=== PATIENT | male | born 1945 | race Caucasian/White ===

== ENCOUNTER 2018-07-16 11:58 | Observation (INO) ==
[2018-07-16 12:45] LABS: Basophils % 0.3 %; Eosinophils # 0.1 K/mcL (0.0-0.6); Eosinophils % 1.7 %; Hematocrit 41.1 % (37.5-50.1); Hemoglobin 12.8 g/dL (12.9-16.9); Immature Granulocytes % 0.3 % (0-4); Lymphocytes # 0.8 K/mcL (0.6-4.6); Lymphocytes % 12.7 %; Mean Corpuscular HGB Conc 31.1 g/dL (31.6-35.5); Mean Corpuscular Hemoglobin 24.3 pg (28.0-33.3); Mean Platelet Volume 10.2 fL (9.4-12.4); Monocytes # 0.7 K/mcL (0.0-1.3); Monocytes % 11.1 %; Neutrophils # 4.7 K/mcL (1.6-8.9); Platelet Count 128 K/mcL (140-400); Red Blood Count 5.27 M/mcL (4.19-5.50); Segmented Neutrophils % 73.9 %
--- NOTE | 2018-07-16 12:56 | Emergency Department Note ---
Addendum entered and electronically signed by Omar Frey DO 07/16/18 16:25: Spoke with on-call hospitalist maryann Foreman to admit for diaphoresis, pneumonia, acute kidney injury, drug ingestion, and suicidal ideation. No further orders at this time Original Note: Disposition Clinical Impression: Thrombocytopenia, Suicidal ideation, Diaphoresis, Drug ingestion, Acute kidney injury Pneumonia Qualifiers: Pneumonia type: due to unspecified organism Laterality: unspecified laterality Lung location: unspecified part of lung Qualified Code(s): J18.9 - Pneumonia, unspecified organism Disposition: Admitted As Inpatient Condition: Good Referrals: NONE,PCP [Primary Care Provider] - Forms: ED Satisfaction Letter Time of Disposition: 15:04 General Adult HPI - General Chief complaint: ED Overdose Stated complaint: SI Time Seen by Provider: 07/16/18 12:06 Source: patient, EMS Mode of arrival: EMS Limitations: no limitations Nursing Notes Reviewed: Yes Vital Signs Reviewed: Yes - History of Present Illness HPI Narrative: 73-year-old male presents to the emergency department via EMS with reports of suicide ideation. Patient resides at home and has a home health aide. He reports chronic pain that extends from his ankles up to his neck. He currently does not have any pain. He does report some nausea but denies any vomiting. He presents here diaphoretic but in no acute distress. He admits to taking over 15 tablets of his oxycodone 10 mg pain prescription. This was filled 3 days ago for 120 tablets, there are only 67 tablets remaining. He denies intentionally taken it to harm himself however he voiced that he wanted to visit his brother who is . He denies any other drug ingestion. Denies any pain at this time such as chest pain shortness of breath or abdominal pain. Denies history of cardiac ischemic disease. Pain Scale: 0 - Related Data Home Medications Medication Instructions Recorded Confirmed Acetaminophen [Tylenol] 500 mg PO Q6HR PRN 05/06/16 05/06/16 Aspirin 81 mg PO DAILY 05/06/16 05/06/16 Clopidogrel [Plavix] 75 mg PO DAILY 05/06/16 05/06/16 Ergocalciferol (VITAMIN D2) 50,000 unit PO QWEEK 05/06/16 05/06/16 [Vitamin D2] Ezetimibe [Zetia] 10 mg PO DAILY 05/06/16 05/06/16 Lisinopril [Zestril] 20 mg PO DAILY 05/06/16 05/06/16 Metoprolol [Lopressor] 25 mg PO BID 05/06/16 05/06/16 Omeprazole [PriLOSEC] 20 mg PO BID 05/06/16 05/06/16 Oxycodone HCl/Acetaminophen 1 tab PO QID PRN 05/06/16 05/06/16 [Percocet 10-325 mg Tablet] Pregabalin [Lyrica] 150 mg PO BID 05/06/16 05/06/16 Sodium Bicarbonate 650 mg PO TID 05/06/16 05/06/16 Sucralfate [Carafate] 1 gm PO BID 05/06/16 05/06/16 Tamsulosin [Flomax] 0.4 mg PO DAILY 05/06/16 05/06/16 Temazepam [Restoril] 15 mg PO HS 05/06/16 05/06/16 Tizanidine HCl 4 mg PO Q8H PRN 05/06/16 05/06/16 Tolterodine Tartrate [Detrol] 2 mg PO BID 05/06/16 05/06/16 Trospium Chloride 20 mg PO HS 05/06/16 05/06/16 Varenicline [Chantix] 0.5 mg PO DAILY 05/06/16 05/06/16 Vit C/Vit E/Lutein/Min/[place]-3 1 cap PO DAILY 05/06/16 05/06/16 [Ocuvite Softgel] diazePAM [Valium] 10 mg PO BID 05/06/16 05/06/16 Allergies Allergy/AdvReac Type Severity Reaction Status Date / Time No Known Allergies Allergy Verified 05/06/16 08:15 All systems ED: reviewed and negative except as stated. Review of Systems: As Per HPI Constitutional: Denies: fever, chills, weakness Cardiovascular: Denies: chest pain Respiratory: Denies: dyspnea Gastrointestinal: Reports: nausea. Denies: abdominal pain, vomiting, diarrhea, hematemesis, hematochezia Genitourinary: Denies: dysuria Musculoskeletal: Denies: back pain, arthralgia Neurological: Denies: headache, weakness, numbness Psychiatric: Reports: suicidal thoughts. Denies: homicidal thoughts, auditory hallucinations, visual hallucinations Past Medical History - Past Medical History Attestation: Yes The following information was validated with the patient. Source: patient Medical history: Reports: GERD, renal disease Surgical history: Reports: angioplasty/stent, cholecystectomy, orthopedic, other Psychiatric history: Reports: no psych history - Social History Smoking Status: Former smoker Alcohol use: Reports: none Drug use: Reports: none, prescription drug abuse Physical Exam - General Limitations: no limitations General appearance: alert, in no apparent distress, other (He is visibly diaphoretic in the face) - Head Head exam: atraumatic, normocephalic, normal inspection - Eye Eye exam: Present: normal appearance, PERRL, EOMI - ENT ENT exam: normal exam, normal oropharynx, mucous membranes moist - Neck Neck exam: Present: normal inspection, full ROM, trachea midline - Chest Chest inspection: Present: normal inspection, symmetric chest wall rise - Respiratory Respiratory exam: Present: normal lung sounds bilaterally. Absent: respiratory distress, wheezes - Expanded Cardiovascular Exam Peripheral pulses: 2+: radial (R), radial (L) - Abdominal Exam Abdominal exam: Present: soft, Non-Tender, normal bowel sounds. Absent: tenderness, distention, guarding, rebound, rigidity - Extremities Exam Extremities exam: Present: normal inspection, full ROM, normal capillary refill. Absent: tenderness, pedal edema - Neurological Exam Neurological exam: Present: alert, oriented X3, CN II-XII intact - Expanded Neurological Exam Patient oriented to: Present: person, place, time Speech: Present: fluid speech Cranial nerves: EOM function (II, III, IV, ): Normal, facial sensation (V): Normal, facial palsy (VII): Normal, gag reflex (IX): Normal, spinal accessory function (XI): Normal, tongue deviation (XII): Normal Motor strength - LUE: 5/5 Motor strength - RUE: 5/5 Motor strength - LLE: 5/5 Motor strength - RLE: 5/5 Upper motor neuron exam: cyndi neglect: Absent bilaterally, pronator drift: Absent bilaterally Sensory exam upper extremity: light touch: Normal Sensory exam lower extremity: light touch: Normal Coma Scale Eye Opening: Spontaneous Coma Scale Motor Response: Obeys Commands Coma Scale Verbal Response: Oriented Coma Scale Total: 15 - Psychiatric Psychiatric exam: Present: normal affect, anxious - Skin Skin exam: Present: warm, intact, diaphoresis, pallor Course Course Narrative: Patient presents with possible suicidal ideation with intentional drug ingestion. He presents diaphoretic but no acute distress. Medications include oxycodone 10 mg without Tylenol component. There is only 67 tablets remaining out of 120 after prescription filled 3 days ago. No history of cardiac ischemic disease. Vital signs are stable here. Neurologic exam without focal deficits. Psychiatric medical clearance evaluation including EKG and chest x-ray. I do not suspect withdrawal at this time as he admits to taking medication yesterday. He denies alcohol use. - Reevaluation(s) Reevaluation #1: Review of his labs shows acute kidney injury 1.79. Urinalysis is not consistent with infection. Urine drug screen shows opiates and benzodiazepine. Alcohol Tylenol and salicylate level unremarkable. Chest x-ray with concerns for possible pneumonia. Will treat for community acquired pneumonia. Concern for possible suicide attempts with intentional drug ingestion a prescription medication. Patient would benefit admission for further evaluation and psychiatric evaluation after medical clearance. Time: 15:05 Reevaluation #2: Troponin lesson 0.03. I am unsure of the etiology of his diaphoresis. Patient would benefit medical admission for his community acquired pneumonia and be evaluated by psychiatry for the concern of intentional drug ingestion overdose. [place] slip signed and on the chart. Time: 16:21 Vital Signs Temperature 98.1 F 07/16/18 12:03 Pulse Rate 102 07/16/18 12:03 Respiratory Rate 12 07/16/18 12:03 Blood Pressure 102/64 07/16/18 12:03 O2 Sat by Pulse Oximetry 94 07/16/18 12:03 Temperature 98.1 F 07/16/18 12:03 Pulse Rate 77 07/16/18 15:47 Respiratory Rate 13 07/16/18 15:47 Blood Pressure 105/56 07/16/18 15:47 O2 Sat by Pulse Oximetry 99 07/16/18 15:47 Oxygen Delivery Oxygen Delivery Nasal Cannula Medical Decision Making - MDM Narrative Medical decision making narrative: Patient was discussed with my attending physician who agrees with ED management and final disposition. They independently evaluated the patient. Please refer to their attestation to this encounter for additional information. This note was generated by [employer] voice recognition software and as a result grammatical or spelling errors may occur using this program. - Medical Records Medical records reviewed: Yes I reviewed the patient's medical records. - Lab Data Lab results reviewed: Yes I reviewed the patient's lab results. Result diagrams: 07/16/18 12:32 07/16/18 12:32 Lab Results 07/16/18 07/16/18 07/16/18 Range/Units 12:32 12:32 13:53 WBC 6.3 (4.3-11.1) K/mcL RBC 5.27 (4.19-5.50) M/mcL Hgb 12.8 L (12.9-16.9) g/dL Hct 41.1 (37.5-50.1) % MCV 78.0 L (83.0-100.0) fL MCH 24.3 L (28.0-33.3) pg MCHC 31.1 L (31.6-35.5) g/dL RDW 16.0 H (11.5-14.5) % Plt Count 128 L (140-400) K/mcL MPV 10.2 (9.4-12.4) fL Immature Gran % 0.3 (0-4) % Seg Neutrophils % 73.9 % Lymphocytes % 12.7 % Monocytes % 11.1 % Eosinophils % 1.7 % Basophils % 0.3 % Neutrophils # 4.7 (1.6-8.9) K/mcL Lymphocytes # 0.8 (0.6-4.6) K/mcL Monocytes # 0.7 (0.0-1.3) K/mcL Eosinophils # 0.1 (0.0-0.6) K/mcL Basophils # 0.0 (0.0-0.2) K/mcL Sodium 139 (136-145) mEq/L Potassium 4.2 (3.5-5.1) mEq/L Chloride 106 (98-107) mEq/L Carbon Dioxide 24 (23-29) mEq/L BUN 22 (8-23) mg/dL Creatinine 1.79 H (0.70-1.30) mg/dL Est GFR ( Amer) 46 L (> 60) Est GFR (Non-Af Amer) 38 L (> 60) BUN/Creatinine Ratio 12 (6-26) Glucose 126 H (70-105) mg/dL Calculated Osmolality 293 (280-300) Calcium 9.3 (8.6-10.3) mg/dL Troponin I < 0.03 (< 0.04) ng/mL Urine Color Yellow (Yellow) Urine Clarity Clear (Clear) Urine pH 6.0 (5.0-8.0) pH Units Ur Specific [place] 1.016 (1.010-1.025) Urine Protein Trace (Neg-Trace) mg/dL Urine Glucose (UA) Normal (Normal) mg/dL Urine Ketones Negative (Negative) mg/dL Urine Blood Negative (Negative) Urine Nitrite Negative (Negative) Urine Bilirubin Negative (Negative) Urine Urobilinogen Normal (Normal) mg/dL Ur Leukocyte Esterase Negative (Negative) Urine Microscopic RBC 3-5 H (0-3) per hpf Urine Microscopic WBC 3-5 H (0-3) per hpf Ur Squamous Epith Cells Few (None-Few) per lpf Amorphous Sediment Few (Few) Hyaline Casts Few (None-Few) per lpf Urine Mucus Few (Few) Salicylates < 2.5 L (15.0-30.0) mg/dL Urine Opiates Screen (Ovykqp=123) ng/mL Acetaminophen < 10 L (10-20) mcg/mL Ur Barbiturates Screen (Gbtbfk=746) ng/mL Ur Phencyclidine Scrn (Cutoff=25) ng/mL Ur Amphetamines Screen (Ngffgj=4030) ng/mL U Benzodiazepines Scrn (Dyupvn=121) ng/mL Urine Cocaine Screen (Cutoff= 300) ng/mL U Marijuana (THC) Screen (Cutoff = 50) ng/mL Ur Drug Screen Interp Ethyl Alcohol < 10 (Less than 10) mg/dL 07/16/18 Range/Units 13:53 WBC (4.3-11.1) K/mcL RBC (4.19-5.50) M/mcL Hgb (12.9-16.9) g/dL Hct (37.5-50.1) % MCV (83.0-100.0) fL MCH (28.0-33.3) pg MCHC (31.6-35.5) g/dL RDW (11.5-14.5) % Plt Count (140-400) K/mcL MPV (9.4-12.4) fL Immature Gran % (0-4) % Seg Neutrophils % % Lymphocytes % % Monocytes % % Eosinophils % % Basophils % % Neutrophils # (1.6-8.9) K/mcL Lymphocytes # (0.6-4.6) K/mcL Monocytes # (0.0-1.3) K/mcL Eosinophils # (0.0-0.6) K/mcL Basophils # (0.0-0.2) K/mcL Sodium (136-145) mEq/L Potassium (3.5-5.1) mEq/L Chloride (98-107) mEq/L Carbon Dioxide (23-29) mEq/L BUN (8-23) mg/dL Creatinine (0.70-1.30) mg/dL Est GFR ( Amer) (> 60) Est GFR (Non-Af Amer) (> 60) BUN/Creatinine Ratio (6-26) Glucose (70-105) mg/dL Calculated Osmolality (280-300) Calcium (8.6-10.3) mg/dL Troponin I (< 0.04) ng/mL Urine Color (Yellow) Urine Clarity (Clear) Urine pH (5.0-8.0) pH Units Ur Specific [place] (1.010-1.025) Urine Protein (Neg-Trace) mg/dL Urine Glucose (UA) (Normal) mg/dL Urine Ketones (Negative) mg/dL Urine Blood (Negative) Urine Nitrite (Negative) Urine Bilirubin (Negative) Urine Urobilinogen (Normal) mg/dL Ur Leukocyte Esterase (Negative) Urine Microscopic RBC (0-3) per hpf Urine Microscopic WBC (0-3) per hpf Ur Squamous Epith Cells (None-Few) per lpf Amorphous Sediment (Few) Hyaline Casts (None-Few) per lpf Urine Mucus (Few) Salicylates (15.0-30.0) mg/dL Urine Opiates Screen Positive H (Ayvvri=103) ng/mL Acetaminophen (10-20) mcg/mL Ur Barbiturates Screen Negative (Yrshap=222) ng/mL Ur Phencyclidine Scrn Negative (Cutoff=25) ng/mL Ur Amphetamines Screen Negative (Kflsro=5402) ng/mL U Benzodiazepines Scrn Positive H (Fsbhud=189) ng/mL Urine Cocaine Screen Negative (Cutoff= 300) ng/mL U Marijuana (THC) Screen Negative (Cutoff = 50) ng/mL Ur Drug Screen Interp See Below Ethyl Alcohol (Less than 10) mg/dL - Radiology Data Radiology results reviewed: Yes I reviewed the patient's radiology results. Chest X-Ray 07/16/18 13:38 IMPRESSION: New left perihilar airspace opacity could represent scarring if there has been interim radiotherapy. Alternatively, this could represent pneumonia or asymmetric edema. D/ / Johnny Squires MD / Johnny Squires MD Interpreting Provider: Johnny Squires MD - EKG Data EKG #1 EKG attestation: Yes I reviewed and interpreted this EKG. EKG results narrative: EKG performed 1218 which shows sinus tachycardia 100 beats per minute, normal axis, early R wave progression, no ST elevation or depression, Q waves seen in leap 3, intervals within normal limits. Compared to prior EKG performed 05/01/2016 shows similar consistent findings. No acute ischemic changes.
[2018-07-16 13:04] LABS: Acetaminophen < 10 mcg/mL (10-20); BUN/Creatinine Ratio 12 (6-26); Blood Urea Nitrogen 22 mg/dL (8-23); Calcium 9.3 mg/dL (8.6-10.3); Carbon Dioxide 24 mEq/L (23-29); Chloride 106 mEq/L (98-107); Ethanol < 10 mg/dL (Less than 10); Glucose 126 mg/dL (70-105); Osmolality,Calculated 293 (280-300); Potassium 4.2 mEq/L (3.5-5.1); Salicylate < 2.5 mg/dL (15.0-30.0); Sodium 139 mEq/L (136-145); eGFR For Non-African Americans 38 (> 60)
[2018-07-16 14:07] LABS: Bilirubin,Urine Negative (Negative); Blood,Urine Negative (Negative); Clarity,Urine Clear (Clear); Color,Urine Yellow (Yellow); Glucose,Urine (UA) Normal (Normal); Ketones,Urine Negative (Negative); Leukocyte Esterase,Urine Negative (Negative); Nitrite,Urine Negative (Negative); Protein,Urine Trace mg/dL (Neg-Trace); Specific Gravity,Urine 1.016 (1.010-1.025); Urobilinogen,Urine Normal (Normal)
[2018-07-16 14:22] LABS: Hyaline Casts,Urine Few per lpf (None-Few); Mucus,Urine Few (Few)
[2018-07-16 14:23] LABS: Amorphous Sediment,Urine Few (Few); Squamous Epithelial Cell,Urine Few per lpf (None-Few)
[2018-07-16 14:25] LABS: Amphetamine Screen,Urine Negative ng/mL (Cutoff=1000); Barbiturate Screen,Urine Negative ng/mL (Cutoff=200); Benzodiazepines Screen,Urine Positive ng/mL (Cutoff=200); Cannabinoid Screen,Urine Negative ng/mL (Cutoff = 50); Cocaine Screen,Urine Negative ng/mL (Cutoff= 300); Opiate Screen,Urine Positive ng/mL (Cutoff=300); Phencyclidine Screen,Urine Negative ng/mL (Cutoff=25)
[2018-07-16] MEDS ORDERED: 0.9 % Sodium Chloride 1,000 ML IVC ONE (14:48)
[2018-07-16] MEDS ORDERED: cefTRIAXone 1,000 MG in Water for inj. (sterile) 20 ML 10 ML IVP ONE (14:48)
[2018-07-16] MEDS ORDERED: Azithromycin 500 MG in D5% in Water 250 ML IVPB ONE (14:48)
[2018-07-16] MEDS ORDERED: Pantoprazole 40 MG VIAL IVP ONE (14:51)
[2018-07-16 15:56] LABS: Troponin I < 0.03 ng/mL (< 0.04)
--- NOTE | 2018-07-16 15:58 | Emergency Department Note ---
Disposition Clinical Impression: Thrombocytopenia, Suicidal ideation, Diaphoresis, Drug ingestion, Acute kidney injury Pneumonia Qualifiers: Pneumonia type: due to unspecified organism Laterality: unspecified laterality Lung location: unspecified part of lung Qualified Code(s): J18.9 - Pneumonia, unspecified organism Disposition: Admitted As Inpatient Condition: Good Referrals: NONE,PCP [Primary Care Provider] - Forms: ED Satisfaction Letter General Adult HPI - General Chief complaint: ED Overdose Stated complaint: SI Time Seen by Provider: 07/16/18 12:06 Source: patient, EMS Mode of arrival: EMS Limitations: no limitations - History of Present Illness Pain Scale: 0 - Related Data Home Medications Medication Instructions Recorded Confirmed Acetaminophen [Tylenol] 500 mg PO Q6HR PRN 05/06/16 05/06/16 Aspirin 81 mg PO DAILY 05/06/16 05/06/16 Clopidogrel [Plavix] 75 mg PO DAILY 05/06/16 05/06/16 Ergocalciferol (VITAMIN D2) 50,000 unit PO QWEEK 05/06/16 05/06/16 [Vitamin D2] Ezetimibe [Zetia] 10 mg PO DAILY 05/06/16 05/06/16 Lisinopril [Zestril] 20 mg PO DAILY 05/06/16 05/06/16 Metoprolol [Lopressor] 25 mg PO BID 05/06/16 05/06/16 Omeprazole [PriLOSEC] 20 mg PO BID 05/06/16 05/06/16 Oxycodone HCl/Acetaminophen 1 tab PO QID PRN 05/06/16 05/06/16 [Percocet 10-325 mg Tablet] Pregabalin [Lyrica] 150 mg PO BID 05/06/16 05/06/16 Sodium Bicarbonate 650 mg PO TID 05/06/16 05/06/16 Sucralfate [Carafate] 1 gm PO BID 05/06/16 05/06/16 Tamsulosin [Flomax] 0.4 mg PO DAILY 05/06/16 05/06/16 Temazepam [Restoril] 15 mg PO HS 05/06/16 05/06/16 Tizanidine HCl 4 mg PO Q8H PRN 05/06/16 05/06/16 Tolterodine Tartrate [Detrol] 2 mg PO BID 05/06/16 05/06/16 Trospium Chloride 20 mg PO HS 05/06/16 05/06/16 Varenicline [Chantix] 0.5 mg PO DAILY 05/06/16 05/06/16 Vit C/Vit E/Lutein/Min/[place]-3 1 cap PO DAILY 05/06/16 05/06/16 [Ocuvite Softgel] diazePAM [Valium] 10 mg PO BID 05/06/16 05/06/16 Allergies Allergy/AdvReac Type Severity Reaction Status Date / Time No Known Allergies Allergy Verified 05/06/16 08:15 Constitutional: Denies: fever, chills, weakness Cardiovascular: Denies: chest pain Respiratory: Denies: dyspnea Gastrointestinal: Reports: nausea. Denies: abdominal pain, vomiting, diarrhea, hematemesis, hematochezia Genitourinary: Denies: dysuria Musculoskeletal: Denies: back pain, arthralgia Neurological: Denies: headache, weakness, numbness Psychiatric: Reports: suicidal thoughts. Denies: homicidal thoughts, auditory hallucinations, visual hallucinations Past Medical History - Past Medical History Medical history: Reports: GERD, renal disease Surgical history: Reports: angioplasty/stent, cholecystectomy, orthopedic, other Psychiatric history: Reports: no psych history - Social History Smoking Status: Former smoker Alcohol use: Reports: none Drug use: Reports: none, prescription drug abuse Physical Exam - General Limitations: no limitations General appearance: alert, in no apparent distress, other (He is visibly diaphoretic in the face) Course Vital Signs Temperature 98.1 F 07/16/18 12:03 Pulse Rate 102 07/16/18 12:03 Respiratory Rate 12 07/16/18 12:03 Blood Pressure 102/64 07/16/18 12:03 O2 Sat by Pulse Oximetry 94 07/16/18 12:03 Temperature 98.1 F 07/16/18 12:03 Pulse Rate 77 07/16/18 15:47 Respiratory Rate 13 07/16/18 15:47 Blood Pressure 105/56 07/16/18 15:47 O2 Sat by Pulse Oximetry 99 07/16/18 15:47 Oxygen Delivery Oxygen Delivery Nasal Cannula Medical Decision Making - Lab Data Result diagrams: 07/16/18 12:32 07/16/18 12:32 Lab Results 07/16/18 07/16/18 07/16/18 Range/Units 12:32 12:32 13:53 WBC 6.3 (4.3-11.1) K/mcL RBC 5.27 (4.19-5.50) M/mcL Hgb 12.8 L (12.9-16.9) g/dL Hct 41.1 (37.5-50.1) % MCV 78.0 L (83.0-100.0) fL MCH 24.3 L (28.0-33.3) pg MCHC 31.1 L (31.6-35.5) g/dL RDW 16.0 H (11.5-14.5) % Plt Count 128 L (140-400) K/mcL MPV 10.2 (9.4-12.4) fL Immature Gran % 0.3 (0-4) % Seg Neutrophils % 73.9 % Lymphocytes % 12.7 % Monocytes % 11.1 % Eosinophils % 1.7 % Basophils % 0.3 % Neutrophils # 4.7 (1.6-8.9) K/mcL Lymphocytes # 0.8 (0.6-4.6) K/mcL Monocytes # 0.7 (0.0-1.3) K/mcL Eosinophils # 0.1 (0.0-0.6) K/mcL Basophils # 0.0 (0.0-0.2) K/mcL Sodium 139 (136-145) mEq/L Potassium 4.2 (3.5-5.1) mEq/L Chloride 106 (98-107) mEq/L Carbon Dioxide 24 (23-29) mEq/L BUN 22 (8-23) mg/dL Creatinine 1.79 H (0.70-1.30) mg/dL Est GFR ( Amer) 46 L (> 60) Est GFR (Non-Af Amer) 38 L (> 60) BUN/Creatinine Ratio 12 (6-26) Glucose 126 H (70-105) mg/dL Calculated Osmolality 293 (280-300) Calcium 9.3 (8.6-10.3) mg/dL Urine Color Yellow (Yellow) Urine Clarity Clear (Clear) Urine pH 6.0 (5.0-8.0) pH Units Ur Specific [place] 1.016 (1.010-1.025) Urine Protein Trace (Neg-Trace) mg/dL Urine Glucose (UA) Normal (Normal) mg/dL Urine Ketones Negative (Negative) mg/dL Urine Blood Negative (Negative) Urine Nitrite Negative (Negative) Urine Bilirubin Negative (Negative) Urine Urobilinogen Normal (Normal) mg/dL Ur Leukocyte Esterase Negative (Negative) Urine Microscopic RBC 3-5 H (0-3) per hpf Urine Microscopic WBC 3-5 H (0-3) per hpf Ur Squamous Epith Cells Few (None-Few) per lpf Amorphous Sediment Few (Few) Hyaline Casts Few (None-Few) per lpf Urine Mucus Few (Few) Salicylates < 2.5 L (15.0-30.0) mg/dL Urine Opiates Screen (Dubluo=228) ng/mL Acetaminophen < 10 L (10-20) mcg/mL Ur Barbiturates Screen (Pdxtet=864) ng/mL Ur Phencyclidine Scrn (Cutoff=25) ng/mL Ur Amphetamines Screen (Timkss=5406) ng/mL U Benzodiazepines Scrn (Sducye=441) ng/mL Urine Cocaine Screen (Cutoff= 300) ng/mL U Marijuana (THC) Screen (Cutoff = 50) ng/mL Ur Drug Screen Interp Ethyl Alcohol < 10 (Less than 10) mg/dL 07/16/18 Range/Units 13:53 WBC (4.3-11.1) K/mcL RBC (4.19-5.50) M/mcL Hgb (12.9-16.9) g/dL Hct (37.5-50.1) % MCV (83.0-100.0) fL MCH (28.0-33.3) pg MCHC (31.6-35.5) g/dL RDW (11.5-14.5) % Plt Count (140-400) K/mcL MPV (9.4-12.4) fL Immature Gran % (0-4) % Seg Neutrophils % % Lymphocytes % % Monocytes % % Eosinophils % % Basophils % % Neutrophils # (1.6-8.9) K/mcL Lymphocytes # (0.6-4.6) K/mcL Monocytes # (0.0-1.3) K/mcL Eosinophils # (0.0-0.6) K/mcL Basophils # (0.0-0.2) K/mcL Sodium (136-145) mEq/L Potassium (3.5-5.1) mEq/L Chloride (98-107) mEq/L Carbon Dioxide (23-29) mEq/L BUN (8-23) mg/dL Creatinine (0.70-1.30) mg/dL Est GFR ( Amer) (> 60) Est GFR (Non-Af Amer) (> 60) BUN/Creatinine Ratio (6-26) Glucose (70-105) mg/dL Calculated Osmolality (280-300) Calcium (8.6-10.3) mg/dL Urine Color (Yellow) Urine Clarity (Clear) Urine pH (5.0-8.0) pH Units Ur Specific [place] (1.010-1.025) Urine Protein (Neg-Trace) mg/dL Urine Glucose (UA) (Normal) mg/dL Urine Ketones (Negative) mg/dL Urine Blood (Negative) Urine Nitrite (Negative) Urine Bilirubin (Negative) Urine Urobilinogen (Normal) mg/dL Ur Leukocyte Esterase (Negative) Urine Microscopic RBC (0-3) per hpf Urine Microscopic WBC (0-3) per hpf Ur Squamous Epith Cells (None-Few) per lpf Amorphous Sediment (Few) Hyaline Casts (None-Few) per lpf Urine Mucus (Few) Salicylates (15.0-30.0) mg/dL Urine Opiates Screen Positive H (Qyjldm=541) ng/mL Acetaminophen (10-20) mcg/mL Ur Barbiturates Screen Negative (Klheef=277) ng/mL Ur Phencyclidine Scrn Negative (Cutoff=25) ng/mL Ur Amphetamines Screen Negative (Xzyqhd=8060) ng/mL U Benzodiazepines Scrn Positive H (Vbiskz=393) ng/mL Urine Cocaine Screen Negative (Cutoff= 300) ng/mL U Marijuana (THC) Screen Negative (Cutoff = 50) ng/mL Ur Drug Screen Interp See Below Ethyl Alcohol (Less than 10) mg/dL Attestation Statement - Attestation Attestation: I examined this patient and my medical decision-making was reviewed with the Resident Physician. I agree with the documented findings, disposition and treatment plan as described except to the extent set forth below. 73 year old male presents to the Ed with complaints of intentiaonl overdose and vomitting coffee ground emesis x 1. Topher states taht he is unsure how many he took but like 20-30s. Topher has a new MARIAH and possibly pneumonia. WE will admit to medicne for medical clerance and then petey consult.
[2018-07-16] MEDS ORDERED: Naloxone 0.4 MG/ML INJ IVP PRN (16:13)
--- NOTE | 2018-07-16 16:55 | Internal Med History&Physical ---
Date of Encounter: 07/16/18 Time of Encounter: 16:30 Internal Medicine - H&P: HPI Chief complaint: Oxycodone overdose, SI Admitted From: Home History of present illness: Mr. Wood is a 73 year old male with past medical history of GERD, chronic pain on oxycodone, ex-smoker, who presented to the ED with intentional overdose on oxycodone. Patient picked up 120 tablets of oxycodone 3 days ago and reports that he took 10-15 tabs of oxycodone 10mg in an attempt to "meet his twin brother", who had already . Although he reports ingestion of 15 tabs, he apparently only had 67 tabs left in the pill bottle. Other than mild nausea, he denies any chest pain, SOB, cough, sputum production, palpitation, abdominal pain, or dysuria. Denies any history of cardiac disease or CVA, although his preliminary medication list includes aspirin and Plavix. In the ED, he was afebrile and hemodynamically stable. Labwork was largely unremarkable except for creatinine of 1.79 (previously 0.9 in 04/2016). Urinalysis negative for nitrite or leukocyte esterase. Urine tox screen was positive for opiates and benzodiazepine. EtOH < 10. EKG showed normal sinus rhythm with ventricular rate of 100, normal QTc, and no ST-T changes concerning for ischemia. CXR was reported as new left perihilar opacity ?scarring vs. PNA vs. asymmetric edema. He was given a dose of rocephin/azithromycin and admitted for further management. Past Med Surg Social Fam HX - Past Medical History Attestation: Yes The following information was validated with the patient. Medical history: GERD Additional medical history: chronic pain Psychiatric history: no psych history - Past Surgical History Surgical History: cholecystectomy, orthopedic, other Additional surgical history: multiple back and foot - Social History Smoking Status: Former smoker Alcohol use: none Drug use: none, prescription drug abuse - Additional Family History Additional family history: Reviewed and noncontributory Internal Medicine - H&P: Meds Acetaminophen [Tylenol] 500 mg PO Q6HR PRN 05/06/16 [History] Aspirin 81 mg PO DAILY 05/06/16 [History] Clopidogrel [Plavix] 75 mg PO DAILY 05/06/16 [History] Ergocalciferol (VITAMIN D2) [Vitamin D2] 50,000 unit PO QWEEK 05/06/16 [History] Ezetimibe [Zetia] 10 mg PO DAILY 05/06/16 [History] Lisinopril [Zestril] 20 mg PO DAILY 05/06/16 [History] Metoprolol [Lopressor] 25 mg PO BID 05/06/16 [History] Omeprazole [PriLOSEC] 20 mg PO BID 05/06/16 [History] Oxycodone HCl/Acetaminophen [Percocet 10-325 mg Tablet] 1 tab PO QID PRN 05/06/16 [History] Pregabalin [Lyrica] 150 mg PO BID 05/06/16 [History] Sodium Bicarbonate 650 mg PO TID 05/06/16 [History] Sucralfate [Carafate] 1 gm PO BID 05/06/16 [History] Tamsulosin [Flomax] 0.4 mg PO DAILY 05/06/16 [History] Temazepam [Restoril] 15 mg PO HS 05/06/16 [History] Tizanidine HCl 4 mg PO Q8H PRN 05/06/16 [History] Tolterodine Tartrate [Detrol] 2 mg PO BID 05/06/16 [History] Trospium Chloride 20 mg PO HS 05/06/16 [History] Varenicline [Chantix] 0.5 mg PO DAILY 05/06/16 [History] Vit C/Vit E/Lutein/Min/[place]-3 [Ocuvite Softgel] 1 cap PO DAILY 05/06/16 [History] diazePAM [Valium] 10 mg PO BID 05/06/16 [History] Allergy/AdvReac Type Severity Reaction Status Date / Time No Known Allergies Allergy Verified 05/06/16 08:15 All Systems PM: A 10-system review of systems was performed and is negative for pertinent findings except as documented above in the HPI. - Constitutional Vitals: Temp Pulse Resp BP Pulse Ox 98.1 F 77 13 105/56 99 07/16/18 12:03 07/16/18 15:47 07/16/18 15:47 07/16/18 15:47 07/16/18 15:47 Exam: General: Mildly somnolent but easily arousable with voice, oriented x 3, not in acute distress. HEENT:EOMI, pupils equal, round and reactive. Cardiovascular:Normal S1 & S2, No JVD. Pulse regular. Lungs: clear to auscultation, no wheezes/rales Abdomen:Soft, non-tender, no rigidity. Extremities:No deformity or swelling Neurological: grossly non-focal Skin:Normal color, no rash, no lesions. Pulses:Carotid and radial pulses normal +2. Rest of the physical exam is non contributory Internal Med - H&P Results - Labs CBC & Chem 7: 07/16/18 12:32 07/16/18 12:32 Labs: Short CBC 07/16/18 Range/Units 12:32 WBC 6.3 (4.3-11.1) K/mcL Hgb 12.8 L (12.9-16.9) g/dL Hct 41.1 (37.5-50.1) % Plt Count 128 L (140-400) K/mcL Neutrophils # 4.7 (1.6-8.9) K/mcL BMP 07/16/18 12:32 Sodium 139 Potassium 4.2 Chloride 106 Carbon Dioxide 24 BUN 22 Creatinine 1.79 H Glucose 126 H Calcium 9.3 Cardiac Enzymes 07/16/18 Range/Units 12:32 Troponin I < 0.03 (< 0.04) ng/mL Urine 07/16/18 Range/Units 13:53 Urine Color Yellow (Yellow) Urine Clarity Clear (Clear) Urine pH 6.0 (5.0-8.0) pH Units Ur Specific [place] 1.016 (1.010-1.025) Urine Protein Trace (Neg-Trace) mg/dL Urine Glucose (UA) Normal (Normal) mg/dL - Impressions ITS Impressions Chest X-Ray 07/16/18 13:38 IMPRESSION: New left perihilar airspace opacity could represent scarring if there has been interim radiotherapy. Alternatively, this could represent pneumonia or asymmetric edema. D/ / Johnny Squires MD / Johnny Squires MD Interpreting Provider: Johnny Squires MD - Assessment and plan (1) Suicidal ideation Current Visit: Yes Status: Acute Assessment and plan: Intentional overdose on oxycodone states that he was not suicidal but wanted to meet his brother who had supportive mx if becomes increasingly somnolent, administer narcan pink slipped in the ED, psych consult called (2) Acute kidney injury Current Visit: Yes Status: Acute Assessment and plan: suspect prerenal, Cr previously at 0.9 but it was 2 years ago ?CKD IVF and monitor avoid nephrotoxins (3) Pneumonia Current Visit: Yes Status: Acute Assessment and plan: CXR reported to show new L hilar opacity but pt denies any signs and symptoms of PNA no fever, leukocytosis, no significant exam finding was already given [place]/Azithromycin in the ED monitor and repeat CXR 2view tomorrow AM Qualifiers: Pneumonia type: due to unspecified organism Laterality: left Lung location: unspecified part of lung Qualified Code(s): J18.9 - Pneumonia, unspecified organism (4) GERD (gastroesophageal reflux disease) Current Visit: Yes Status: Chronic Assessment and plan: resume home meds once reconciled Qualifiers: Esophagitis presence: esophagitis presence not specified Qualified Code(s): K21.9 - Gastro-esophageal reflux disease without esophagitis (5) Thrombocytopenia Current Visit: Yes Status: Chronic Assessment and plan: Appears chronic, Plt 134 in 04/2016 monitor (6) DVT prophylaxis Current Visit: Yes Status: Acute Assessment and plan: EPCD - Time Spent With Patient Total time spent is greater than 50% in coordination of care (as documented) at patient's floor/unit and/or counseling patient:
[2018-07-16] MEDS: Ringers Solution, Lactated 1,000 ML IVC SCH (18:04)
[2018-07-16] MEDS ORDERED: 0.9 % Sodium Chloride 500 ML IVC PRN (21:16)
[2018-07-17] MEDS: Ringers Solution, Lactated 1,000 ML IVC SCH (04:06)
[2018-07-17 09:09] LABS: Basophils % 0.3 %
[2018-07-17 09:11] LABS: Eosinophils # 0.1 K/mcL (0.0-0.6); Eosinophils % 2.7 %; Hematocrit 34.6 % (37.5-50.1); Lymphocytes # 0.8 K/mcL (0.6-4.6); Lymphocytes % 20.5 %; Mean Corpuscular HGB Conc 31.8 g/dL (31.6-35.5); Mean Corpuscular Hemoglobin 24.7 pg (28.0-33.3); Mean Corpuscular Volume 77.8 fL (83.0-100.0); Mean Platelet Volume 10.3 fL (9.4-12.4); Monocytes # 0.5 K/mcL (0.0-1.3); Monocytes % 14.3 %; Neutrophils # 2.3 K/mcL (1.6-8.9); Red Blood Count 4.45 M/mcL (4.19-5.50); Segmented Neutrophils % 62.2 %
[2018-07-17 09:14] LABS: Platelet Count 93 K/mcL (140-400)
[2018-07-17 09:27] LABS: Calcium 8.9 mg/dL (8.6-10.3); Magnesium 1.9 mg/dL (1.6-2.6); Potassium 4.2 mEq/L (3.5-5.1)
[2018-07-17] MEDS ORDERED: tiZANidine 4 MG TABLET PO PRN (10:13)
--- NOTE | 2018-07-17 10:51 | Consult Note ---
Date of Encounter: 07/17/18 Time of Encounter: 10:46 Assessment & Recommendation (1) Major depression, recurrent Current visit: Yes Status: Acute Assessment & Recommendation: Given severity of attempt would admit him for mental health treatment. Client denies he is suicidal now but he is high risk given his age, chronic pain issues, and limited supports. He also lives alone. Has home health but he seems to be able to access his own medications. Recommend a [facility] unit given his age and decreased mobility from arthritis. Recommend neonatal social worker consult for placement recommendations [facility] Qualifiers: Active/Remission status: currently active Major depression episode severity: severe Psychotic features: without psychotic features Qualified Code(s): F33.2 - Major depressive disorder, recurrent severe without psychotic features History of Present Illness Requesting Physician: Unruly Hollis MD Reason for consult: overdose History of present illness: Mr. Wood is a 73 year old male who was admitted following an overdose on his pain medication. Today client is oriented but cannot say why he took the overdose or how many pills he took. Denies he is suicidal today. 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 Reluctant to give any information that might keep him in the hospital. Client states he has never attempted suicide before now. Denies any history of inpatient mental health admissions. Admits he has been treated for depression by his PCP in the past but not currently. Lives alone but has home health aides. Apparently they are the ones who found him and called the squad. Does not appear to have many other supports. Chronic pain issues from arthritis. Takes high dose opiates daily to try and help with pain. Given his history of depression, lack of current treatment, lack of supports, and chronic pain issues would consider him high risk. CC: Unruly Hollis MD Past Med Surg Social Fam HX - Past Medical History Medical history: GERD - Past Psychiatric History Psychiatric history: Reports: depression Family psychiatric history: Unknown Family History of Suicide: Unknown - Past Surgical History Surgical History: cholecystectomy, orthopedic, other - Social History Smoking Status: Former smoker Alcohol use: none Drug use: none, prescription drug abuse - Family History Mother Living Status: Father Living Status: Medications & Allergies Acetaminophen [Tylenol] 500 mg PO Q6HR PRN 05/06/16 [History] Aspirin 81 mg PO DAILY 05/06/16 [History] Clopidogrel [Plavix] 75 mg PO DAILY 05/06/16 [History] Ergocalciferol (VITAMIN D2) [Vitamin D2] 50,000 unit PO QWEEK 05/06/16 [History] Ezetimibe [Zetia] 10 mg PO DAILY 05/06/16 [History] Lisinopril [Zestril] 10 mg PO DAILY 05/06/16 [History] Metoprolol [Lopressor] 25 mg PO DAILY 05/06/16 [History] Omeprazole [PriLOSEC] 20 mg PO BID 05/06/16 [History] Oxycodone HCl/Acetaminophen [Percocet 10-325 mg Tablet] 1 tab PO QID PRN 1 07/06/15 [History] Pregabalin [Lyrica] 150 mg PO BID 05/06/16 [History] Sodium Bicarbonate 650 mg PO TID 05/06/16 [History] Sucralfate [Carafate] 1 gm PO BID 05/06/16 [History] Tamsulosin [Flomax] 0.4 mg PO DAILY 05/06/16 [History] Temazepam [Restoril] 15 mg PO HS 05/06/16 [History] Tizanidine HCl 4 mg PO Q8H PRN 05/06/16 [History] Tolterodine Tartrate [Detrol] 2 mg PO BID 05/06/16 [History] Vit C/Vit E/Lutein/Min/[place]-3 [Ocuvite Softgel] 1 cap PO DAILY 05/06/16 [History] diazePAM [Valium] 10 mg PO BID 05/06/16 [History] Mirtazapine [Remeron] 15 mg PO HS 07/16/18 [History] Allergy/AdvReac Type Severity Reaction Status Date / Time No Known Allergies Allergy Verified 05/06/16 08:15 Review of Systems Constitutional: Denies: fever, chills, weakness, weight change Eyes: Denies: eye pain, vision change Ears, Nose, Throat: Denies: ear pain, throat pain, dental pain, hearing loss, congestion Cardiovascular: Denies: chest pain, palpitations, dyspnea on exertion Respiratory: Denies: cough, dyspnea, wheezes Gastrointestinal: Denies: abdominal pain, nausea, vomiting, diarrhea, constipation Genitourinary male: Denies: urgency, dysuria, frequency, genital lesions Musculoskeletal: Reports: joint swelling, joint pain Integumentary: Denies: rash, lesions, pruritus Neurological: Denies: headache, weakness, numbness, memory loss Endocrine: Denies: fatigue, heat or cold intolerance Hematologic/Lymphatic: Denies: easy bruising, lymphadenopathy Allergic/Immunologic: Denies: urticaria, itchy eyes Psychiatry Exam - Constitutional Vitals: Temp Pulse Resp BP Pulse Ox 97.5 F L 77 17 169/73 97 07/17/18 07:28 07/17/18 07:28 07/17/18 07:28 07/17/18 07:28 07/17/18 07:28 General appearance: age & developmentally appropriate - Musculoskeletal Gait: other Station: relaxed Strength & Tone: normal for patient - Psychiatric Patient Orientation: Yes Person, Yes Time, Yes Place Level of alertness: Alert Behavior: agitated Psychomotor activity: Normal Eye Contact: Maintains Eye Contact Mood Description: Angry Affect description: congruent with mood Speech Volume: Normal Speech pattern: normal rate, normal rhythm, normal tone, fluent, spontaneous Language & Vocabulary: consistent with education Thought Process: Linear Thought Content: No Suicidal ideation, No Homicidal ideation, No Overt delusions Perceptual Disturbances: No Auditory hallucinations, No Visual hallucinations Attention Span Ability: Capable of Focused Attention Memory Description: Immediate Intact, Recent Impaired, Remote Intact Patient Reliability: Questionable Historian Fund of knowledge: Yes abstraction ability Intelligence Estimate: Average Judgment: Poor Insight: Minimal Results - Drug Levels and Toxicology Drug Levels and Toxicology: Drug Levels and Toxicity 07/16/18 07/16/18 12:32 13:53 Urine Opiates Screen Positive H Acetaminophen < 10 L Ur Barbiturates Screen Negative Ur Phencyclidine Scrn Negative Ur Amphetamines Screen Negative U Benzodiazepines Scrn Positive H Urine Cocaine Screen Negative U Marijuana (THC) Screen Negative Ethyl Alcohol < 10 - Labs Labs: Laboratory Last Values WBC 3.7 K/mcL (4.3-11.1) L 07/17/18 08:56 RBC 4.45 M/mcL (4.19-5.50) 07/17/18 08:56 Hgb 11.0 g/dL (12.9-16.9) L D 07/17/18 08:56 Hct 34.6 % (37.5-50.1) L 07/17/18 08:56 MCV 77.8 fL (83.0-100.0) L 07/17/18 08:56 MCH 24.7 pg (28.0-33.3) L 07/17/18 08:56 MCHC 31.8 g/dL (31.6-35.5) 07/17/18 08:56 RDW 16.0 % (11.5-14.5) H 07/17/18 08:56 Plt Count 93 K/mcL (140-400) L 07/17/18 08:56 MPV 10.3 fL (9.4-12.4) 07/17/18 08:56 Immature Gran % 0.0 % (0-4) 07/17/18 08:56 Seg Neutrophils % 62.2 % 07/17/18 08:56 Lymphocytes % 20.5 % 07/17/18 08:56 Monocytes % 14.3 % 07/17/18 08:56 Eosinophils % 2.7 % 07/17/18 08:56 Basophils % 0.3 % 07/17/18 08:56 Neutrophils # 2.3 K/mcL (1.6-8.9) 07/17/18 08:56 Lymphocytes # 0.8 K/mcL (0.6-4.6) 07/17/18 08:56 Monocytes # 0.5 K/mcL (0.0-1.3) 07/17/18 08:56 Eosinophils # 0.1 K/mcL (0.0-0.6) 07/17/18 08:56 Basophils # 0.0 K/mcL (0.0-0.2) 07/17/18 08:56 Immature Plt Fraction 2.0 % (1.1-6.1) 07/17/18 08:56 Sodium 139 mEq/L (136-145) 07/17/18 08:56 Potassium 4.2 mEq/L (3.5-5.1) 07/17/18 08:56 Chloride 109 mEq/L (98-107) H 07/17/18 08:56 Carbon Dioxide 24 mEq/L (23-29) 07/17/18 08:56 BUN 23 mg/dL (8-23) 07/17/18 08:56 Creatinine 1.42 mg/dL (0.70-1.30) H 07/17/18 08:56 Est GFR ( Amer) 60 (> 60) 07/17/18 08:56 Est GFR (Non-Af Amer) 49 (> 60) L 07/17/18 08:56 BUN/Creatinine Ratio 16 (6-26) 07/17/18 08:56 Glucose 103 mg/dL (70-105) 07/17/18 08:56 Calculated Osmolality 292 (280-300) 07/17/18 08:56 Calcium 8.9 mg/dL (8.6-10.3) 07/17/18 08:56 Magnesium 1.9 mg/dL (1.6-2.6) 07/17/18 08:56 Troponin I < 0.03 ng/mL (< 0.04) 07/16/18 12:32 Urine Color Yellow (Yellow) 07/16/18 13:53 Urine Clarity Clear (Clear) 07/16/18 13:53 Urine pH 6.0 pH Units (5.0-8.0) 07/16/18 13:53 Ur Specific [place] 1.016 (1.010-1.025) 07/16/18 13:53 Urine Protein Trace mg/dL (Neg-Trace) 07/16/18 13:53 Urine Glucose (UA) Normal mg/dL (Normal) 07/16/18 13:53 Urine Ketones Negative mg/dL (Negative) 07/16/18 13:53 Urine Blood Negative (Negative) 07/16/18 13:53 Urine Nitrite Negative (Negative) 07/16/18 13:53 Urine Bilirubin Negative (Negative) 07/16/18 13:53 Urine Urobilinogen Normal mg/dL (Normal) 07/16/18 13:53 Ur Leukocyte Esterase Negative (Negative) 07/16/18 13:53 Urine Microscopic RBC 3-5 per hpf (0-3) H 07/16/18 13:53 Urine Microscopic WBC 3-5 per hpf (0-3) H 07/16/18 13:53 Ur Squamous Epith Cells Few per lpf (None-Few) 07/16/18 13:53 Amorphous Sediment Few (Few) 07/16/18 13:53 Hyaline Casts Few per lpf (None-Few) 07/16/18 13:53 Urine Mucus Few (Few) 07/16/18 13:53 Salicylates < 2.5 mg/dL (15.0-30.0) L 07/16/18 12:32 Urine Opiates Screen Positive ng/mL (Etfogr=872) H 07/16/18 13:53 Acetaminophen < 10 mcg/mL (10-20) L 07/16/18 12:32 Ur Barbiturates Screen Negative ng/mL (Qasixa=603) 07/16/18 13:53 Ur Phencyclidine Scrn Negative ng/mL (Cutoff=25) 07/16/18 13:53 Ur Amphetamines Screen Negative ng/mL (Xdjcaw=9264) 07/16/18 13:53 U Benzodiazepines Scrn Positive ng/mL (Ewzcgj=963) H 07/16/18 13:53 Urine Cocaine Screen Negative ng/mL (Cutoff= 300) 07/16/18 13:53 U Marijuana (THC) Screen Negative ng/mL (Cutoff = 50) 07/16/18 13:53 Ur Drug Screen Interp See Below 07/16/18 13:53 Ethyl Alcohol < 10 mg/dL (Less than 10) 07/16/18 12:32 - Impressions Impressions Chest X-Ray 07/16/18 13:38 IMPRESSION: New left perihilar airspace opacity could represent scarring if there has been interim radiotherapy. Alternatively, this could represent pneumonia or asymmetric edema. D/ / Johnny Squires MD / Johnny Squires MD Interpreting Provider: Johnny Squires MD Chest X-Ray 07/17/18 06:00 IMPRESSION: No significant interval change of a left perihilar opacity. Differentials are broad and may represent scarring or infection. D/ / 07/17/2018 08:59:21 Mayra Barron MD / paresh Interpreting Provider: Mayra Barron MD Consult Discharge Plan - Plan Referrals: NONE,PCP [Primary Care Provider] -
[2018-07-17] MEDS: levoFLOXacin 750 MG TABLET PO SCH (11:10)
[2018-07-17 11:28] LABS: Adenovirus Not Detected (Not Detect); Bordetella Pertussis Not Detected (Not Detect); Chlamydophila pneumoniae Not Detected (Not Detect); Coronavirus 229E Not Detected (Not Detect); Coronavirus HKU1 Not Detected (Not Detect); Coronavirus NL63 Not Detected (Not Detect); Coronavirus OC43 Not Detected (Not Detect); Human Metapneumovirus Not Detected (Not Detect); Human Rhinovirus/Enterovirus Not Detected (Not Detect); Influenza A Subtype 2009 H1 Not Detected (Not Detect); Influenza A Untypeable Not Detected (Not Detect); Influenza B Not Detected (Not Detect); Mycoplasma pneumoniae Not Detected (Not Detect); Parainfluenza Virus 1 Not Detected (Not Detect); Parainfluenza Virus 2 Not Detected (Not Detect); Parainfluenza Virus 3 Not Detected (Not Detect); Parainfluenza Virus 4 Not Detected (Not Detect); Respiratory Syncytial Virus Not Detected (Not Detect)
--- NOTE | 2018-07-17 12:03 | Internal Med Progress Note ---
Hospitalist Progress Note - Encounter Date of Encounter: 07/17/18 Time of Encounter: 11:00 - Subjective Interval History: Reports improvement in his nausea and vomiting. Continues to state that he just wants to meet his brother. - Exam Vitals: Temp Pulse Resp BP Pulse Ox 97.9 F 74 17 168/76 96 07/17/18 11:18 07/17/18 11:18 07/17/18 11:18 07/17/18 11:18 07/17/18 11:18 Exam: General: Mildly somnolent but easily arousable with voice, oriented x 3, not in acute distress. Cardiovascular:Normal S1 & S2, No JVD. Pulse regular. Lungs: clear to auscultation, no wheezes/rales Abdomen:Soft, non-tender, no rigidity. Extremities:No deformity or swelling Neurological: grossly non-focal - Assessment and Plan (1) Suicidal ideation Current Visit: Yes Status: Acute Assessment and Plan: Intentional overdose on oxycodone states that he was not suicidal but wanted to meet his brother who had supportive mx if becomes increasingly somnolent, administer narcan psych consult appreciated, for [facility] unit admission SW consult (2) Acute kidney injury Current Visit: Yes Status: Acute Assessment and Plan: suspect prerenal, Cr previously at 0.9 but it was 2 years ago ?CKD improving IVF, continue avoid nephrotoxins (3) Pneumonia Current Visit: Yes Status: Acute Assessment and Plan: CXR reported to show new L hilar opacity but pt denies any signs and symptoms of PNA no fever, leukocytosis, no significant exam finding repeat CXR PA+Lat again demonstrated L perihilar opacity given the "new" finding (comparion film was in 2016), will treat with PO Levaqui n for 5 days. Will need outpatient imaging after the tx to note the interval change (4) GERD (gastroesophageal reflux disease) Current Visit: Yes Status: Chronic Assessment and Plan: resume home meds (5) Thrombocytopenia Current Visit: Yes Status: Chronic Assessment and Plan: Appears chronic, Plt 134 in 04/2016 monitor (6) DVT prophylaxis Current Visit: Yes Status: Acute Assessment and Plan: EPCD - Time Spent with Patient Total time spent is greater than 50% in coordination of care (as documented) at patient's floor/unit and/or counseling patient: Plan of Care Discussed with: nurse Internal Medicine: Result - Labs CBC & Chem 7: 07/17/18 08:56 07/17/18 08:56 Labs: Short CBC 07/16/18 07/17/18 Range/Units 12:32 08:56 WBC 6.3 3.7 L (4.3-11.1) K/mcL Hgb 12.8 L 11.0 L D (12.9-16.9) g/dL Hct 41.1 34.6 L (37.5-50.1) % Plt Count 128 L 93 L (140-400) K/mcL Neutrophils # 4.7 2.3 (1.6-8.9) K/mcL BMP 07/16/18 07/17/18 12:32 08:56 Sodium 139 139 Potassium 4.2 4.2 Chloride 106 109 H Carbon Dioxide 24 24 BUN 22 23 Creatinine 1.79 H 1.42 H Glucose 126 H 103 Calcium 9.3 8.9 Cardiac Enzymes 07/16/18 Range/Units 12:32 Troponin I < 0.03 (< 0.04) ng/mL Urine 07/16/18 Range/Units 13:53 Urine Color Yellow (Yellow) Urine Clarity Clear (Clear) Urine pH 6.0 (5.0-8.0) pH Units Ur Specific [place] 1.016 (1.010-1.025) Urine Protein Trace (Neg-Trace) mg/dL Urine Glucose (UA) Normal (Normal) mg/dL - Impressions Impressions Chest X-Ray 07/16/18 13:38 IMPRESSION: New left perihilar airspace opacity could represent scarring if there has been interim radiotherapy. Alternatively, this could represent pneumonia or asymmetric edema. D/ / Johnny Squires MD / Johnny Squires MD Interpreting Provider: Johnny Squires MD Chest X-Ray 07/17/18 06:00 IMPRESSION: No significant interval change of a left perihilar opacity. Differentials are broad and may represent scarring or infection. D/ / 07/17/2018 08:59:21 Mayra Barron MD / paresh Interpreting Provider: Mayra Barron MD Consult Discharge Plan - Plan Referrals: NONE,PCP [Primary Care Provider] - (3) Pneumonia Qualifiers: Pneumonia type: due to unspecified organism Laterality: left Lung location: unspecified part of lung Qualified Code(s): J18.9 - Pneumonia, unspecified organism (4) GERD (gastroesophageal reflux disease) Qualifiers: Esophagitis presence: esophagitis presence not specified Qualified Code(s): K21.9 - Gastro-esophageal reflux disease without esophagitis
[2018-07-17] MEDS ORDERED: Mirtazapine 15 MG TABLET PO SCH (21:00)
[2018-07-17] MEDS: Pregabalin 75 MG CAPSULE PO SCH (22:25)
[2018-07-17] MEDS: Sucralfate 1 GM TABLET PO SCH (22:25)
[2018-07-18] MEDS: levoFLOXacin 750 MG TABLET PO SCH (08:20)
[2018-07-18] MEDS: Pregabalin 75 MG CAPSULE PO SCH (08:20)
[2018-07-18] MEDS: Sucralfate 1 GM TABLET PO SCH (08:20)
[2018-07-18] MEDS ORDERED: Aspirin 81 MG TAB.CHEW PO SCH (09:00)
[2018-07-18] MEDS ORDERED: Metoprolol XL (24 HR) Succ 50 MG TAB.ER.24H PO SCH (09:00)
[2018-07-18 11:31] VITALS: BP 150/66
[2018-07-18 13:08] LABS: BUN/Creatinine Ratio 15 (6-26); Blood Urea Nitrogen 17 mg/dL (8-23); Calcium 8.7 mg/dL (8.6-10.3); Carbon Dioxide 20 mEq/L (23-29); Chloride 107 mEq/L (98-107); Glucose 91 mg/dL (70-105); Osmolality,Calculated 289 (280-300); Potassium 3.7 mEq/L (3.5-5.1); Sodium 139 mEq/L (136-145); eGFR For Non-African Americans > 60 (> 60)
--- NOTE | 2018-07-18 14:05 | Discharge Summary ---
- NOTES TO OUTPATIENT PROVIDER Notes to Outpatient Provider: Patient was admitted with intentional overdose on oxycodone and MARIAH. Also had L perihilar opacity which could represent PNA or scarring Clinically improved with supportive mx and PO Levaquin and will be discharged to [facility]. To complete 5 days of Levaquin and repeat chest imaging as outpatient. Orders not resulted at time of discharge: Pending orders 07/18/18 10:25 EKG [ECG 12 lead ECG] [ECG] Routine Date of Encounter: 07/18/18 Time of Encounter: 12:00 - Discharge Diagnosis (1) Suicidal ideation Priority: Primary Status: Acute (2) Acute kidney injury Priority: Secondary Status: Acute (3) Pneumonia Priority: Secondary Status: Acute Qualifiers: Pneumonia type: due to unspecified organism Laterality: left Lung location: unspecified part of lung Qualified Code(s): J18.9 - Pneumonia, unspecified organism (4) GERD (gastroesophageal reflux disease) Priority: Secondary Status: Chronic Qualifiers: Esophagitis presence: esophagitis presence not specified Qualified Code(s): K21.9 - Gastro-esophageal reflux disease without esophagitis (5) Thrombocytopenia Priority: Secondary Status: Chronic (6) DVT prophylaxis Priority: Secondary Status: Acute Hospital course: Mr. Wood is a 73 year old male was admitted with intentional overdose on oxycodone and MARIAH. Also had L perihilar opacity which could represent PNA or scarring Clinically improved with supportive mx and PO Levaquin and will be discharged to [facility]. To complete 5 days of Levaquin and repeat chest imaging as outpatient. Home meds, including BZD and pain meds, were reconciled f or the purpose of transfer but can be modified at the [facility] as necessary. Discharge discussed with: patient, social work, case management - Time Spent with Patient Total time spent providing and/or coordinating discharge services: 25 mins - Discharge Medications Prescriptions: diazePAM [Valium] 10 mg PO BID 5 Days #10 tablet levoFLOXacin [Levaquin] 750 mg PO DAILY 3 Days #3 tablet Metoprolol XL (24 HR) Succ [Toprol Xl] 50 mg PO DAILY #30 tab.er.24h Oxycodone HCl/Acetaminophen [Percocet 10-325 mg Tablet] 1 tab PO QID PRN 3 Days #12 tablet PRN Reason: Pain Temazepam [Restoril] 15 mg PO HS 7 Days #7 capsule Home Medications: Acetaminophen [Tylenol] 500 mg PO Q6HR PRN 05/06/16 [History] Aspirin 81 mg PO DAILY 05/06/16 [History] Clopidogrel [Plavix] 75 mg PO DAILY 05/06/16 [History] Ergocalciferol (VITAMIN D2) [Vitamin D2] 50,000 unit PO QWEEK 05/06/16 [History] Ezetimibe [Zetia] 10 mg PO DAILY 05/06/16 [History] Lisinopril [Zestril] 10 mg PO DAILY 05/06/16 [History] Omeprazole [PriLOSEC] 20 mg PO BID 05/06/16 [History] Pregabalin [Lyrica] 150 mg PO BID 05/06/16 [History] Sodium Bicarbonate 650 mg PO TID 05/06/16 [History] Sucralfate [Carafate] 1 gm PO BID 05/06/16 [History] Tamsulosin [Flomax] 0.4 mg PO DAILY 05/06/16 [History] Tizanidine HCl 4 mg PO Q8H PRN 05/06/16 [History] Vit C/Vit E/Lutein/Min/[place]-3 [Ocuvite Softgel] 1 cap PO DAILY 05/06/16 [History] Mirtazapine [Remeron] 15 mg PO HS 07/16/18 [History] Metoprolol XL (24 HR) Succ [Toprol Xl] 50 mg PO DAILY #30 tab.er.24h 07/18/18 [Rx] Oxycodone HCl/Acetaminophen [Percocet 10-325 mg Tablet] 1 tab PO QID PRN 3 Days #12 tablet 07/18/18 [Rx] Temazepam [Restoril] 15 mg PO HS 7 Days #7 capsule 07/18/18 [Rx] diazePAM [Valium] 10 mg PO BID 5 Days #10 tablet 07/18/18 [Rx] levoFLOXacin [Levaquin] 750 mg PO DAILY 3 Days #3 tablet 07/18/18 [Rx] Allergies/Adverse Reactions: Allergy/AdvReac Type Severity Reaction Status Date / Time No Known Allergies Allergy Verified 05/06/16 08:15 Date of admission: 07/16/18 17:13 Primary care physician: PCP NONE Consults: 07/16/18 16:15 Consult to Psychiatry [CONS] Stat Consulting Provider: [facility] [place] Reason consult: Sitter/1:1 Call Completed: Yes 07/17/18 10:27 Consult to Contract Loader [CONS] Routine Reason for SW Consult: geripsych - Constitutional Vitals: Temp Pulse Resp BP Pulse Ox 98.1 F 75 1 150/66 96 07/18/18 11:30 07/18/18 11:30 07/18/18 11:30 07/18/18 11:30 07/18/18 11:30 Exam: General: alert and oriented x 3, not in acute distress. Cardiovascular:Normal S1 & S2, No JVD. Pulse regular. Lungs: clear to auscultation, no wheezes/rales Abdomen:Soft, non-tender, no rigidity. Extremities:No deformity or swelling Neurological: grossly non-focal - Patient Status Disposition: Transfer Psychiatric Hosp Condition: Good Functional capacity at discharge: independent ambulation Overall status at discharge: patient is progressing back to baseline - Discharge Instructions Instructions: Pneumonia (DC) Follow Up With: NONE,PCP [Primary Care Provider] - Additional Instructions: Complete a course of PO LEvaquin for questionable PNA, repeat chest imaging as outpatient in 4-6 weeks to document resolution of L perihilar opacity - Diet and Activity Activity: resume usual activities as tolerated Diet: regular diet
--- NOTE | 2018-07-19 14:01 | Electrocardiograph Report ---
[place] [id number] Test Date: 2018-07-16 Pat Name: Steven Wood Department: EXAM3 Room: 3B Gender: M Truck Technician: : 1945 Requested By: Omar Frey Order Number: [id number] Reading MD: Cate Mirza Measurements Intervals [place] Rate: 100 P: 66 [place]: 168 QRS: -1 QRSD: 94 T: 65 QT: 345 QTc: 445 Interpretive Statements Sinus tachycardia Abnormal R-wave progression, early transition Electronically Signed On 07-19-2018 13:59:49 EST by Cate Mirza
--- NOTE | 2018-07-20 21:27 | Electrocardiograph Report ---
[place] [id number] Test Date: 2018-07-18 Pat Name: Steven Wood Department: 113 Room: 3B41 Gender: M Accounts Receivable Analyst: : 1945 Requested By: Unruly Hollis Order Number: [id number] Reading MD: Sean Wise Measurements Intervals [place] Rate: 76 P: 53 [place]: 153 QRS: 6 QRSD: 95 T: 33 QT: 386 QTc: 417 Interpretive Statements Sinus rhythm Abnormal R-wave progression, early transition Nonspecific ST-T abnormalities Electronically Signed On 07-20-2018 21:26:08 EST by Sean Wise
== END 2018-07-18 16:24 ==
LOC: 3BNU 11:58 → EMEROOARM 11:58 → SUATTDRO 17:13 → 3BNU 17:49
PROVIDERS: ADMIT Student in an Organized Health Care Education/Training Program; ATTEND Internal Medicine

== ENCOUNTER 2021-01-29 19:15 | Inpatient (IN) ==
[2021-01-29] MEDS ORDERED: 0.9 % Sodium Chloride 1,000 ML ONE ×2 (19:33→21:13)
[2021-01-29] MEDS ORDERED: cefTRIAXone 1,000 MG in Water for inj. (sterile) 10 ML IVP ONE (19:34)
[2021-01-29] MEDS ORDERED: Azithromycin 500 MG in 0.9 % Sodium Chloride 250 ML IVPB ONE (19:34)
[2021-01-29] MEDS ORDERED: 0.9 % Sodium Chloride 500 ML IVC ONE (19:35)
[2021-01-29 19:52] LABS: VBG HCO3 19 mEq/L (21-27); VBG PCO2 30 mmHg (41-51); VBG PO2 40 mmHg (25-50)
[2021-01-29 19:54] LABS: Basophils % 0.1 %; Hematocrit 40.2 % (37.5-50.1); Hemoglobin 13.1 g/dL (12.9-16.9); Immature Platelets 8.5 % (1.1-6.1); Lymphocytes # 0.6 K/mcL (0.6-4.6); Lymphocytes % 8.3 %; Mean Corpuscular HGB Conc 32.6 g/dL (31.6-35.5); Mean Corpuscular Volume 79.9 fL (83.0-100.0); Mean Platelet Volume 11.7 fL (9.4-12.4); Monocytes # 0.2 K/mcL (0.0-1.3); Monocytes % 2.4 %; Neutrophils # 5.9 K/mcL (1.6-8.9); Red Blood Count 5.03 M/mcL (4.19-5.50); Red Cell Distribution Width 16.1 % (11.5-14.5); Segmented Neutrophils % 88.2 %; White Blood Count 6.7 K/mcL (4.3-11.1)
[2021-01-29 20:09] LABS: Platelet Count 84 K/mcL (140-400)
[2021-01-29 20:26] LABS: Potassium 5.5 mEq/L (3.5-5.1); Troponin I 0.09 ng/mL (< 0.04)
[2021-01-29 20:56] LABS: Influenza A PCR Negative (Negative); Influenza B PCR Negative (Negative); Resp. Syncytial Virus PCR Negative (Negative)
[2021-01-29 21:01] LABS: SARS-CoV-2 by PCR (In House) Positive (Negative)
[2021-01-29] MEDS ORDERED: 0.9 % Sodium Chloride 1,000 ML IV ONE (21:17)
[2021-01-29] MEDS ORDERED: *HR* Norepinephrine 4 MG/4 ML VIAL IVC ONE (21:44)
[2021-01-29] MEDS ORDERED: 0.9 % Sodium Chloride 250 ML ONE (21:44)
[2021-01-29] MEDS: Norepinephrine 4 MG/254 ML IV.SOLN IVC SCH (21:52)
[2021-01-29] MEDS ORDERED: 0.9 % Sodium Chloride 500 ML IV ONE (23:55)
[2021-01-30] MEDS ORDERED: *HR* Heparin 5,000 UNIT/ML VIAL IVP ONE (00:17)
[2021-01-30] MEDS ORDERED: *HR* Heparin 5,000 UNIT/ML VIAL IVP PRN (00:17)
[2021-01-30 00:59] LABS: Heparin anti-factor XA UFH < 0.04 IU/mL (0.30-0.70); INR 1.1; Prothrombin Time 12.5 Seconds (9.4-12.1)
[2021-01-30] MEDS ORDERED: Melatonin 3 MG TABLET PO PRN (01:53)
[2021-01-30] MEDS ORDERED: Naloxone 0.4 MG/ML INJ IVP PRN (01:53)
[2021-01-30] MEDS ORDERED: Ondansetron 4 MG/2 ML VIAL IVP PRN (01:53)
[2021-01-30] MEDS ORDERED: Benzonatate 100 MG CAPSULE PO PRN (01:57)
[2021-01-30] MEDS: Heparin 25,000UNIT/250ML 1/2NS 25,000 UNIT/250 ML IV.SOLN IVC SCH (02:40)
[2021-01-30 03:09] LABS: Hematocrit 34.2 % (37.5-50.1); Hemoglobin 11.1 g/dL (12.9-16.9); Immature Granulocytes % 1.4 % (0-4); Immature Platelets 7.2 % (1.1-6.1); Lymphocytes # 0.3 K/mcL (0.6-4.6); Lymphocytes % 5.3 %; Mean Corpuscular HGB Conc 32.5 g/dL (31.6-35.5); Mean Corpuscular Hemoglobin 26.7 pg (28.0-33.3); Mean Corpuscular Volume 82.4 fL (83.0-100.0); Mean Platelet Volume 11.3 fL (9.4-12.4); Monocytes # 0.1 K/mcL (0.0-1.3); Monocytes % 1.9 %; Red Blood Count 4.15 M/mcL (4.19-5.50); Red Cell Distribution Width 16.2 % (11.5-14.5); Segmented Neutrophils % 91.4 %; White Blood Count 6.3 K/mcL (4.3-11.1)
[2021-01-30 03:10] LABS: Neutrophils # 5.8 K/mcL (1.6-8.9); Platelet Count 86 K/mcL (140-400)
[2021-01-30 03:34] LABS: Albumin 3.1 g/dL (3.5-5.7); Albumin/Globulin Ratio 0.9 (1.1-2.2); Bilirubin,Total 0.6 mg/dL (0.3-1.0); Calcium 7.6 mg/dL (8.6-10.3); Globulin 3.3 g/dL (2.4-3.5); Magnesium 2.1 mg/dL (1.6-2.6); Phosphorous 4.5 mg/dL (2.7-4.5); Potassium 4.9 mEq/L (3.5-5.1); Total Protein 6.4 g/dL (6.4-8.9)
[2021-01-30] MEDS: Ipratropium 1 PUFF INHALER IH SCH ×6 (03:41→23:19)
[2021-01-30] MEDS ORDERED: 0.9 % Sodium Chloride 1,000 ML IVC ONE (04:54)
[2021-01-30 08:00] LABS: Immature Reticulocyte % 11.7 % (11.0-38.0); Retculocyte # 0.03 M/mcL (0.05-0.10); Reticulocyte % 0.7 % (1.6-2.8)
[2021-01-30] MEDS ORDERED: Dexamethasone 10 MG/ML VIAL ONE (08:09)
[2021-01-30] MEDS: cefTRIAXone 1,000 MG in Water for inj. (sterile) 10 ML IVP SCH (08:18)
[2021-01-30 09:31] LABS: VBG Ionized Calcium 1.03 mmol/L (1.15-1.35)
[2021-01-30 11:20] LABS: Troponin I 0.12 ng/mL (< 0.04)
[2021-01-30 11:26] LABS: Hepatitis B Surface Antigen Nonreactive (Nonreactive)
[2021-01-30 11:51] LABS: Folate 4.3 ng/mL (3.0-16.0); Vitamin B12 783 pg/mL (250-1100)
[2021-01-30 11:52] LABS: Bilirubin,Urine Negative (Negative); Blood,Urine Large (Negative); Clarity,Urine Turbid (Clear); Color,Urine Yellow (Yellow); Glucose,Urine (UA) Normal (Normal); Hyaline Casts,Urine Few per lpf (None Seen); Ketones,Urine 10 mg/dL (Negative); Leukocyte Esterase,Urine Negative (Negative); Mucus,Urine Few per lpf (None-Few); Nitrite,Urine Negative (Negative); PH,Urine 5.5 pH Units (5.0-8.0); Protein,Urine 70 mg/dL (Neg-Trace); Red Blood Cell Casts,Urine Many per lpf (None Seen); Specific Gravity,Urine 1.021 (1.010-1.025); Urobilinogen,Urine Normal (Normal)
[2021-01-30 11:55] LABS: Hepatitis C Virus Antibody Nonreactive (Nonreactive)
[2021-01-30 11:57] LABS: Hepatitis A Antibody IgM Nonreactive (Nonreactive); Hepatitis B Core IgM Nonreactive (Nonreactive)
[2021-01-30] MEDS: Norepinephrine 4 MG/254 ML IV.SOLN IVC SCH (19:23)
[2021-01-30 19:56] LABS: Sodium, Urine 49.9 mEq/L
[2021-01-30] MEDS: Azithromycin 500 MG in 0.9 % Sodium Chloride 250 ML IVPB SCH (20:17)
[2021-01-30 20:45] LABS: Troponin I 0.13 ng/mL (< 0.04)
[2021-01-30] MEDS: Acetaminophen 325 MG TABLET PO PRN (21:57)
[2021-01-31] MEDS: Heparin 25,000UNIT/250ML 1/2NS 25,000 UNIT/250 ML IV.SOLN IVC SCH ×2 (00:17→17:17)
[2021-01-31] MEDS: Ipratropium 1 PUFF INHALER IH SCH ×5 (03:57→20:04)
[2021-01-31 05:42] LABS: Hematocrit 32.8 % (37.5-50.1); Hemoglobin 10.4 g/dL (12.9-16.9); Immature Granulocytes % 1.9 % (0-4); Lymphocytes # 0.4 K/mcL (0.6-4.6); Lymphocytes % 10.9 %; Mean Corpuscular HGB Conc 31.7 g/dL (31.6-35.5); Mean Corpuscular Hemoglobin 26.2 pg (28.0-33.3); Mean Corpuscular Volume 82.6 fL (83.0-100.0); Mean Platelet Volume 12.3 fL (9.4-12.4); Monocytes # 0.2 K/mcL (0.0-1.3); Monocytes % 5.3 %; Neutrophils # 2.6 K/mcL (1.6-8.9); Platelet Count 87 K/mcL (140-400); Red Blood Count 3.97 M/mcL (4.19-5.50); Red Cell Distribution Width 16.5 % (11.5-14.5); Segmented Neutrophils % 81.9 %; White Blood Count 3.2 K/mcL (4.3-11.1)
[2021-01-31 05:57] LABS: Albumin/Globulin Ratio 0.9 (1.1-2.2); Bilirubin,Total 0.4 mg/dL (0.3-1.0); Calcium 7.8 mg/dL (8.6-10.3); Globulin 3.4 g/dL (2.4-3.5); Magnesium 2.1 mg/dL (1.6-2.6); Potassium 4.8 mEq/L (3.5-5.1); Total Protein 6.4 g/dL (6.4-8.9)
[2021-01-31 06:05] LABS: VBG Ionized Calcium 1.06 mmol/L (1.15-1.35)
[2021-01-31] MEDS: Calcium Gluconate 1gm/50mL 1 GM/50 ML BAG IVPB SCH ×2 (06:29→07:15)
[2021-01-31] MEDS ORDERED: Morphine Sulfate 2 MG/ML SYRINGE IVP ONE (06:40)
[2021-01-31] MEDS: cefTRIAXone 1,000 MG in Water for inj. (sterile) 10 ML IVP SCH (07:51)
[2021-01-31] MEDS: Dexamethasone Sodium Phos/PF 10 MG/ML VIAL IVP SCH (07:51)
[2021-01-31] MEDS: Acetaminophen 325 MG TABLET PO PRN (09:43)
[2021-01-31] MEDS: Dexmedetomidine HCl 400 MCG/100 ML MLS IVC SCH ×2 (09:43→19:43)
[2021-01-31] MEDS ORDERED: tiZANidine 4 MG TABLET PO PRN (15:31)
[2021-01-31] MEDS ORDERED: Famotidine 20 MG/2 ML VIAL IVP ONE (15:38)
[2021-01-31] MEDS: Azithromycin 500 MG in 0.9 % Sodium Chloride 250 ML IVPB SCH (20:00)
[2021-01-31] MEDS: Norepinephrine 4 MG/254 ML IV.SOLN IVC SCH (20:01)
[2021-02-01] MEDS: Ipratropium 1 PUFF INHALER IH SCH ×7 (00:04→22:54)
[2021-02-01] MEDS: Dexmedetomidine HCl 400 MCG/100 ML MLS IVC SCH ×2 (00:09→03:40)
[2021-02-01] MEDS ORDERED: Morphine Sulfate 2 MG/ML SYRINGE IVP ONE (02:53)
[2021-02-01 03:23] LABS: VBG Ionized Calcium 1.08 mmol/L (1.15-1.35)
[2021-02-01 03:27] LABS: Basophils % 0.2 %; Hematocrit 38.2 % (37.5-50.1); Hemoglobin 11.9 g/dL (12.9-16.9); Immature Granulocytes % 4.1 % (0-4); Immature Platelets 10.7 % (1.1-6.1); Lymphocytes # 0.6 K/mcL (0.6-4.6); Lymphocytes % 10.5 %; Mean Corpuscular HGB Conc 31.2 g/dL (31.6-35.5); Mean Corpuscular Hemoglobin 25.9 pg (28.0-33.3); Mean Corpuscular Volume 83.2 fL (83.0-100.0); Mean Platelet Volume 12.4 fL (9.4-12.4); Monocytes # 0.2 K/mcL (0.0-1.3); Monocytes % 3.1 %; Neutrophils # 4.3 K/mcL (1.6-8.9); Nucleated Red Blood Cells 0.4 /100 WBC (0); Platelet Count 101 K/mcL (140-400); Red Blood Count 4.59 M/mcL (4.19-5.50); Red Cell Distribution Width 16.5 % (11.5-14.5); Segmented Neutrophils % 82.1 %; White Blood Count 5.2 K/mcL (4.3-11.1)
[2021-02-01] MEDS ORDERED: *HR* LORazepam 2 MG/ML VIAL IVP ONE (03:30)
[2021-02-01 03:43] LABS: Albumin 3.3 g/dL (3.5-5.7); Bilirubin,Total 0.6 mg/dL (0.3-1.0); Calcium 8.5 mg/dL (8.6-10.3); Globulin 3.3 g/dL (2.4-3.5); Phosphorous 4.2 mg/dL (2.7-4.5); Total Protein 6.6 g/dL (6.4-8.9)
[2021-02-01] MEDS ORDERED: Artificial Tears SOLN 15 ML BOTTLE BOTH EYES PRN (03:48)
[2021-02-01] MEDS: Artificial Tears SOLN 15 ML BOTTLE BOTH EYES SCH ×6 (04:20→23:12)
[2021-02-01] MEDS: FentaNYL (PF) 1,000 MCG/100 ML IV.SOLN IVC SCH ×4 (04:20→19:19)
[2021-02-01 04:50] LABS: ABG Base Excess -8 mEq/L (-2 to 3); ABG HCO3 18 mEq/L (21-27); ABG Oxygen Saturation 94 % (95-98); ABG PCO2 35 mmHg (35-45); ABG PH 7.31 pH Units (7.32-7.45); ABG PO2 75 mmHg (85-104); ABG TCO2 19 mEq/L (20-26); Blood Gas VT 380 cc
[2021-02-01] MEDS: Norepinephrine 4 MG/254 ML IV.SOLN IVC SCH ×2 (04:54→22:49)
[2021-02-01] MEDS: Pantoprazole 40 MG VIAL IVP SCH (05:16)
[2021-02-01] MEDS ORDERED: *HR* Midazolam HCl 2 MG/2 ML VIAL IVP ONE (05:29)
[2021-02-01] MEDS: Midazolam HCl 50 MG/100 ML IV.SOLN IVC SCH ×2 (05:55→15:27)
[2021-02-01] MEDS: Dexamethasone Sodium Phos/PF 10 MG/ML VIAL IVP SCH (08:40)
[2021-02-01] MEDS: Chlorhexidine Rinse 15 ML MOUTHWASH MM SCH ×2 (08:40→20:08)
[2021-02-01] MEDS: cefTRIAXone 1,000 MG in Water for inj. (sterile) 10 ML IVP SCH (08:40)
[2021-02-01] MEDS: Cisatracurium 200 MG in 0.9 % Sodium Chloride 180 ML IVC SCH ×2 (09:13→21:24)
[2021-02-01] MEDS ORDERED: *HR* Propofol 200 MG/20 ML VIAL IVP ONE (13:03)
[2021-02-01] MEDS: Azithromycin 500 MG in 0.9 % Sodium Chloride 250 ML IVPB SCH (20:08)
[2021-02-01] MEDS: Heparin 25,000UNIT/250ML 1/2NS 25,000 UNIT/250 ML IV.SOLN IVC SCH (23:13)
[2021-02-02] MEDS: FentaNYL (PF) 2,500 MCG/50 ML IV.SOLN IVC SCH ×2 (00:05→13:00)
[2021-02-02] MEDS: Artificial Tears SOLN 15 ML BOTTLE BOTH EYES SCH ×6 (03:03→23:02)
[2021-02-02] MEDS: Midazolam HCl 50 MG/100 ML IV.SOLN IVC SCH ×2 (03:11→16:51)
[2021-02-02 03:14] LABS: Basophils % 0.7 %; Hematocrit 33.9 % (37.5-50.1); Hemoglobin 10.4 g/dL (12.9-16.9); Immature Granulocytes % 7.9 % (0-4); Lymphocytes # 0.2 K/mcL (0.6-4.6); Lymphocytes % 7.2 %; Mean Corpuscular HGB Conc 30.7 g/dL (31.6-35.5); Mean Corpuscular Hemoglobin 26.5 pg (28.0-33.3); Mean Corpuscular Volume 86.3 fL (83.0-100.0); Mean Platelet Volume 12.2 fL (9.4-12.4); Monocytes # 0.2 K/mcL (0.0-1.3); Monocytes % 7.2 %; Neutrophils # 2.4 K/mcL (1.6-8.9); Nucleated Red Blood Cells 0.7 /100 WBC (0); Platelet Count 106 K/mcL (140-400); Red Blood Count 3.93 M/mcL (4.19-5.50); Red Cell Distribution Width 16.5 % (11.5-14.5); White Blood Count 3.1 K/mcL (4.3-11.1)
[2021-02-02 03:16] LABS: VBG Ionized Calcium 1.12 mmol/L (1.15-1.35)
[2021-02-02 03:37] LABS: Albumin 2.9 g/dL (3.5-5.7); Albumin/Globulin Ratio 0.9 (1.1-2.2); Bilirubin,Total 0.9 mg/dL (0.3-1.0); Globulin 3.2 g/dL (2.4-3.5); Magnesium 2.1 mg/dL (1.6-2.6); Phosphorous 4.8 mg/dL (2.7-4.5); Total Protein 6.1 g/dL (6.4-8.9)
[2021-02-02 03:44] LABS: Anisocytosis 1+ (Not Present)
[2021-02-02 03:45] LABS: Platelet Estimate Slight Decrease (Normal)
[2021-02-02] MEDS: Ipratropium 1 PUFF INHALER IH SCH ×6 (04:42→23:04)
[2021-02-02 05:01] LABS: ABG Base Excess -6 mEq/L (-2 to 3); ABG HCO3 22 mEq/L (21-27); ABG Oxygen Saturation 91 % (95-98); ABG PCO2 60 mmHg (35-45); ABG PH 7.19 pH Units (7.32-7.45); ABG PO2 77 mmHg (85-104); ABG TCO2 24 mEq/L (20-26)
[2021-02-02] MEDS: Pantoprazole 40 MG VIAL IVP SCH (05:05)
[2021-02-02] MEDS ORDERED: Furosemide 40 MG/4 ML VIAL IVP ONE (05:26)
[2021-02-02 08:41] LABS: ABG Base Excess -5 mEq/L (-2 to 3); ABG HCO3 23 mEq/L (21-27); ABG Oxygen Saturation 91 % (95-98); ABG PCO2 53 mmHg (35-45); ABG PH 7.24 pH Units (7.32-7.45); ABG PO2 71 mmHg (85-104); ABG TCO2 24 mEq/L (20-26); Blood Gas Modality ASSIST CONTROL; Blood Gas VT 400 cc
[2021-02-02] MEDS: Chlorhexidine Rinse 15 ML MOUTHWASH MM SCH ×2 (08:42→19:12)
[2021-02-02] MEDS: Dexamethasone Sodium Phos/PF 10 MG/ML VIAL IVP SCH (08:42)
[2021-02-02] MEDS: cefTRIAXone 1,000 MG in Water for inj. (sterile) 10 ML IVP SCH (08:43)
[2021-02-02] MEDS: SODIUM ZIRCONIUM CYCLOSILICATE 5 GM POWD.PACK PO SCH (11:07)
[2021-02-02 11:09] LABS: Calcium 8.1 mg/dL (8.6-10.3); Potassium 5.8 mEq/L (3.5-5.1)
[2021-02-02] MEDS: Cisatracurium 200 MG in 0.9 % Sodium Chloride 180 ML IVC SCH (15:00)
[2021-02-02] MEDS: Azithromycin 500 MG in 0.9 % Sodium Chloride 250 ML IVPB SCH (19:12)
[2021-02-02] MEDS ORDERED: *HR* Metoprolol 5 MG/5 ML VIAL IVP ONE ×2 (19:38→19:43)
[2021-02-02] MEDS: Norepinephrine 4 MG/254 ML IV.SOLN IVC SCH (21:28)
[2021-02-03] MEDS: Heparin 25,000UNIT/250ML 1/2NS 25,000 UNIT/250 ML IV.SOLN IVC SCH (00:33)
[2021-02-03] MEDS: FentaNYL (PF) 2,500 MCG/50 ML IV.SOLN IVC SCH ×2 (01:03→12:34)
[2021-02-03] MEDS: Artificial Tears SOLN 15 ML BOTTLE BOTH EYES SCH ×5 (03:14→19:53)
[2021-02-03 03:32] LABS: VBG Ionized Calcium 1.06 mmol/L (1.15-1.35)
[2021-02-03 03:42] LABS: Basophils % 0.5 %; Hematocrit 30.8 % (37.5-50.1); Hemoglobin 9.7 g/dL (12.9-16.9); Lymphocytes # 0.2 K/mcL (0.6-4.6); Lymphocytes % 3.7 %; Mean Corpuscular HGB Conc 31.5 g/dL (31.6-35.5); Mean Corpuscular Hemoglobin 26.7 pg (28.0-33.3); Mean Corpuscular Volume 84.8 fL (83.0-100.0); Mean Platelet Volume 11.5 fL (9.4-12.4); Monocytes # 0.4 K/mcL (0.0-1.3); Monocytes % 6.9 %; Neutrophils # 4.5 K/mcL (1.6-8.9); Nucleated Red Blood Cells 0.7 /100 WBC (0); Platelet Count 117 K/mcL (140-400); Red Blood Count 3.63 M/mcL (4.19-5.50); Red Cell Distribution Width 16.8 % (11.5-14.5); Segmented Neutrophils % 79.9 %
[2021-02-03] MEDS: Ipratropium 1 PUFF INHALER IH SCH ×6 (03:50→23:45)
[2021-02-03 04:00] LABS: Albumin 2.8 g/dL (3.5-5.7); Albumin/Globulin Ratio 0.9 (1.1-2.2); Phosphorous 3.1 mg/dL (2.7-4.5); Potassium 5.7 mEq/L (3.5-5.1); Total Protein 5.8 g/dL (6.4-8.9)
[2021-02-03 04:10] LABS: White Blood Count 5.6 K/mcL (4.3-11.1)
[2021-02-03 04:34] LABS: Anisocytosis 1+ (Not Present); Microcytosis Present (Not Present); Platelet Estimate Slight Decrease (Normal)
[2021-02-03] MEDS: Cisatracurium 200 MG in 0.9 % Sodium Chloride 180 ML IVC SCH (05:08)
[2021-02-03] MEDS: Midazolam HCl 50 MG/100 ML IV.SOLN IVC SCH ×2 (05:09→19:00)
[2021-02-03] MEDS: Pantoprazole 40 MG VIAL IVP SCH (05:12)
[2021-02-03 05:43] LABS: ABG Base Excess -4 mEq/L (-2 to 3); ABG HCO3 22 mEq/L (21-27); ABG Oxygen Saturation 91 % (95-98); ABG PCO2 43 mmHg (35-45); ABG PH 7.32 pH Units (7.32-7.45); ABG PO2 67 mmHg (85-104); ABG TCO2 23 mEq/L (20-26)
[2021-02-03] MEDS ORDERED: *HR* Metoprolol 5 MG/5 ML VIAL IVP ONE (06:50)
[2021-02-03] MEDS ORDERED: *HR* Metoprolol 5 MG/5 ML VIAL IVP PRN (06:50)
[2021-02-03] MEDS: Dexamethasone Sodium Phos/PF 10 MG/ML VIAL IVP SCH (08:19)
[2021-02-03] MEDS: Chlorhexidine Rinse 15 ML MOUTHWASH MM SCH ×2 (08:19→19:53)
[2021-02-03] MEDS: cefTRIAXone 1,000 MG in Water for inj. (sterile) 10 ML IVP SCH (08:19)
[2021-02-03] MEDS: SODIUM ZIRCONIUM CYCLOSILICATE 5 GM POWD.PACK PO SCH ×2 (09:14→16:04)
[2021-02-03] MEDS: Azithromycin 500 MG in 0.9 % Sodium Chloride 250 ML IVPB SCH (21:22)
[2021-02-03 22:05] LABS: BUN/Creatinine Ratio 43 (6-26); Blood Urea Nitrogen 46 mg/dL (8-23); Calcium 7.5 mg/dL (8.6-10.3); Carbon Dioxide 23 mEq/L (23-29); Chloride 115 mEq/L (98-107); Glucose 195 mg/dL (70-105); Osmolality,Calculated 311 (280-300); Potassium 5.8 mEq/L (3.5-5.1); Sodium 142 mEq/L (136-145); eGFR For African Americans > 60 (> 60); eGFR For Non-African Americans > 60 (> 60)
[2021-02-04] MEDS: Artificial Tears SOLN 15 ML BOTTLE BOTH EYES SCH ×7 (00:21→23:29)
[2021-02-04] MEDS: Heparin 25,000UNIT/250ML 1/2NS 25,000 UNIT/250 ML IV.SOLN IVC SCH ×2 (00:21→23:25)
[2021-02-04] MEDS: FentaNYL (PF) 2,500 MCG/50 ML IV.SOLN IVC SCH ×2 (02:45→18:24)
[2021-02-04] MEDS: Ipratropium 1 PUFF INHALER IH SCH ×5 (03:46→20:37)
[2021-02-04 04:09] LABS: Basophils % 0.3 %; Hematocrit 28.9 % (37.5-50.1); Hemoglobin 8.8 g/dL (12.9-16.9); Immature Granulocytes % 7.7 % (0-4); Immature Platelets 7.7 % (1.1-6.1); Lymphocytes # 0.2 K/mcL (0.6-4.6); Lymphocytes % 5.9 %; Mean Corpuscular HGB Conc 30.4 g/dL (31.6-35.5); Mean Corpuscular Hemoglobin 26.1 pg (28.0-33.3); Mean Corpuscular Volume 85.8 fL (83.0-100.0); Mean Platelet Volume 11.6 fL (9.4-12.4); Monocytes # 0.2 K/mcL (0.0-1.3); Monocytes % 6.1 %; Neutrophils # 3.1 K/mcL (1.6-8.9); Nucleated Red Blood Cells 0.8 /100 WBC (0); Platelet Count 101 K/mcL (140-400); Red Blood Count 3.37 M/mcL (4.19-5.50); White Blood Count 3.9 K/mcL (4.3-11.1)
[2021-02-04 04:13] LABS: VBG Ionized Calcium 1.19 mmol/L (1.15-1.35)
[2021-02-04 04:28] LABS: Alanine Aminotransferase 61 Units/L (7-52); Albumin 2.6 g/dL (3.5-5.7); Albumin/Globulin Ratio 1.1 (1.1-2.2); Alkaline Phosphatase 92 Units/L (34-104); Aspartate Amino Transferase 88 Units/L (13-39); BUN/Creatinine Ratio 47 (6-26); Bilirubin,Total 0.9 mg/dL (0.3-1.0); Blood Urea Nitrogen 49 mg/dL (8-23); Calcium 7.9 mg/dL (8.6-10.3); Carbon Dioxide 23 mEq/L (23-29); Chloride 114 mEq/L (98-107); Globulin 2.4 g/dL (2.4-3.5); Glucose 153 mg/dL (70-105); Magnesium 1.8 mg/dL (1.6-2.6); Osmolality,Calculated 312 (280-300); Potassium 5.5 mEq/L (3.5-5.1); Sodium 143 mEq/L (136-145); eGFR For African Americans > 60 (> 60); eGFR For Non-African Americans > 60 (> 60)
[2021-02-04 04:57] LABS: ABG Base Excess -1 mEq/L (-2 to 3); ABG HCO3 26 mEq/L (21-27); ABG Oxygen Saturation 90 % (95-98); ABG PCO2 52 mmHg (35-45); ABG PH 7.31 pH Units (7.32-7.45); ABG PO2 64 mmHg (85-104); ABG TCO2 28 mEq/L (20-26); Blood Gas Modality ASSIST CONTROL; Blood Gas VT 400 cc
[2021-02-04] MEDS: *HR* Heparin 5,000 UNIT/ML VIAL IVP PRN (05:17)
[2021-02-04] MEDS: Pantoprazole 40 MG VIAL IVP SCH (05:19)
[2021-02-04] MEDS: Dexamethasone Sodium Phos/PF 10 MG/ML VIAL IVP SCH (08:03)
[2021-02-04] MEDS: cefTRIAXone 1,000 MG in Water for inj. (sterile) 10 ML IVP SCH (08:03)
[2021-02-04] MEDS: Chlorhexidine Rinse 15 ML MOUTHWASH MM SCH ×2 (08:03→20:31)
[2021-02-04] MEDS: Metoprolol XL (24 HR) Succ 50 MG TAB.ER.24H PO SCH (08:04)
[2021-02-04] MEDS: Dexmedetomidine HCl 400 MCG/100 ML MLS IVC SCH ×2 (11:06→23:30)
[2021-02-04] MEDS: Furosemide 40 MG/4 ML VIAL IVP SCH (15:37)
[2021-02-04] MEDS: Norepinephrine 4 MG/254 ML IV.SOLN IVC SCH (20:32)
[2021-02-05] MEDS: Ipratropium 1 PUFF INHALER IH SCH ×7 (00:16→23:29)
[2021-02-05 03:39] LABS: VBG Ionized Calcium 1.24 mmol/L (1.15-1.35)
[2021-02-05 03:48] LABS: Hematocrit 27.8 % (37.5-50.1); Hemoglobin 8.8 g/dL (12.9-16.9); Lymphocytes # 0.4 K/mcL (0.6-4.6); Mean Corpuscular HGB Conc 31.7 g/dL (31.6-35.5); Mean Corpuscular Hemoglobin 26.9 pg (28.0-33.3); Mean Platelet Volume 12.8 fL (9.4-12.4); Nucleated Red Blood Cells 0.4 /100 WBC (0); Platelet Count 105 K/mcL (140-400); Red Blood Count 3.27 M/mcL (4.19-5.50); Red Cell Distribution Width 17.2 % (11.5-14.5); White Blood Count 4.7 K/mcL (4.3-11.1)
[2021-02-05 04:05] LABS: Alanine Aminotransferase 61 Units/L (7-52); Albumin 2.7 g/dL (3.5-5.7); Alkaline Phosphatase 123 Units/L (34-104); Aspartate Amino Transferase 69 Units/L (13-39); BUN/Creatinine Ratio 52 (6-26); Bilirubin,Total 1.4 mg/dL (0.3-1.0); Blood Urea Nitrogen 59 mg/dL (8-23); Calcium 8.5 mg/dL (8.6-10.3); Carbon Dioxide 25 mEq/L (23-29); Chloride 116 mEq/L (98-107); Globulin 2.8 g/dL (2.4-3.5); Glucose 131 mg/dL (70-105); Magnesium 2.4 mg/dL (1.6-2.6); Osmolality,Calculated 322 (280-300); Phosphorous 2.8 mg/dL (2.7-4.5); Potassium 4.9 mEq/L (3.5-5.1); Sodium 147 mEq/L (136-145); Total Protein 5.5 g/dL (6.4-8.9); eGFR For African Americans > 60 (> 60); eGFR For Non-African Americans > 60 (> 60)
[2021-02-05 04:25] LABS: ABG Base Excess -1 mEq/L (-2 to 3); ABG HCO3 24 mEq/L (21-27); ABG Oxygen Saturation 95 % (95-98); ABG PCO2 40 mmHg (35-45); ABG PH 7.39 pH Units (7.32-7.45); ABG PO2 75 mmHg (85-104); ABG TCO2 26 mEq/L (20-26); Blood Gas Modality ASSIST CONTROL; Blood Gas VT 400 cc
[2021-02-05] MEDS: Artificial Tears SOLN 15 ML BOTTLE BOTH EYES SCH ×6 (04:26→23:57)
[2021-02-05 04:30] LABS: Anisocytosis 1+ (Not Present); Neutrophils # 4.2 K/mcL (1.6-8.9); Platelet Estimate Decreased (Normal)
[2021-02-05] MEDS: Pantoprazole 40 MG VIAL IVP SCH (05:27)
[2021-02-05] MEDS: Cisatracurium 200 MG in 0.9 % Sodium Chloride 180 ML IVC SCH (05:28)
[2021-02-05] MEDS: Chlorhexidine Rinse 15 ML MOUTHWASH MM SCH ×2 (07:57→20:44)
[2021-02-05] MEDS: Furosemide 40 MG/4 ML VIAL IVP SCH (07:58)
[2021-02-05] MEDS: Dexamethasone Sodium Phos/PF 10 MG/ML VIAL IVP SCH (07:58)
[2021-02-05] MEDS: cefTRIAXone 1,000 MG in Water for inj. (sterile) 10 ML IVP SCH (07:59)
[2021-02-05] MEDS: Metoprolol XL (24 HR) Succ 50 MG TAB.ER.24H PO SCH (07:59)
[2021-02-05] MEDS: SODIUM ZIRCONIUM CYCLOSILICATE 5 GM POWD.PACK PO SCH (07:59)
[2021-02-05] MEDS: Insulin LISPRO 300 UNITS/3 ML VIAL SUBQ SCH ×4 (13:38→23:57)
[2021-02-05] MEDS: FentaNYL (PF) 2,500 MCG/50 ML IV.SOLN IVC SCH (18:35)
[2021-02-06] MEDS: Dexmedetomidine HCl 400 MCG/100 ML MLS IVC SCH ×3 (01:45→23:13)
[2021-02-06] MEDS: Ipratropium 1 PUFF INHALER IH SCH ×5 (03:56→20:45)
[2021-02-06 04:19] LABS: ABG Base Excess 2 mEq/L (-2 to 3); ABG HCO3 28 mEq/L (21-27); ABG Oxygen Saturation 95 % (95-98); ABG PCO2 50 mmHg (35-45); ABG PH 7.37 pH Units (7.32-7.45); ABG PO2 81 mmHg (85-104); ABG TCO2 30 mEq/L (20-26)
[2021-02-06] MEDS: Insulin LISPRO 300 UNITS/3 ML VIAL SUBQ SCH ×5 (04:43→20:38)
[2021-02-06] MEDS: Acetaminophen 325 MG TABLET PO PRN ×2 (04:43→08:30)
[2021-02-06] MEDS: Artificial Tears SOLN 15 ML BOTTLE BOTH EYES SCH ×5 (04:44→20:37)
[2021-02-06 04:53] LABS: Hematocrit 32.9 % (37.5-50.1); Hemoglobin 10.1 g/dL (12.9-16.9); Mean Corpuscular HGB Conc 30.7 g/dL (31.6-35.5); Mean Corpuscular Hemoglobin 26.3 pg (28.0-33.3); Mean Corpuscular Volume 85.7 fL (83.0-100.0); Mean Platelet Volume 12.6 fL (9.4-12.4); Nucleated Red Blood Cells 0.2 /100 WBC (0); Platelet Count 115 K/mcL (140-400); Red Blood Count 3.84 M/mcL (4.19-5.50); Red Cell Distribution Width 17.4 % (11.5-14.5)
[2021-02-06 04:54] LABS: White Blood Count 8.9 K/mcL (4.3-11.1)
[2021-02-06 04:59] LABS: VBG Ionized Calcium 1.25 mmol/L (1.15-1.35)
[2021-02-06 05:09] LABS: Anisocytosis 1+ (Not Present); Lymphocytes # 0.2 K/mcL (0.6-4.6); Monocytes # 0.4 K/mcL (0.0-1.3); Neutrophils # 8.2 K/mcL (1.6-8.9); Platelet Estimate Slight Decrease (Normal); Smudge Cells Present (Not Present)
[2021-02-06 05:16] LABS: Alanine Aminotransferase 60 Units/L (7-52); Albumin/Globulin Ratio 0.9 (1.1-2.2); Alkaline Phosphatase 167 Units/L (34-104); Aspartate Amino Transferase 38 Units/L (13-39); BUN/Creatinine Ratio 54 (6-26); Bilirubin,Total 1.9 mg/dL (0.3-1.0); Blood Urea Nitrogen 50 mg/dL (8-23); Calcium 9.5 mg/dL (8.6-10.3); Carbon Dioxide 28 mEq/L (23-29); Chloride 112 mEq/L (98-107); Globulin 3.5 g/dL (2.4-3.5); Glucose 244 mg/dL (70-105); Osmolality,Calculated 323 (280-300); Potassium 5.8 mEq/L (3.5-5.1); Sodium 146 mEq/L (136-145); Total Protein 6.5 g/dL (6.4-8.9); eGFR For African Americans > 60 (> 60); eGFR For Non-African Americans > 60 (> 60)
[2021-02-06] MEDS: *HR* Heparin 5,000 UNIT/ML VIAL IVP PRN (05:37)
[2021-02-06] MEDS: Pantoprazole 40 MG VIAL IVP SCH (05:39)
[2021-02-06] MEDS: Midazolam HCl 50 MG/100 ML IV.SOLN IVC SCH ×2 (05:39→15:16)
[2021-02-06] MEDS: Norepinephrine 4 MG/254 ML IV.SOLN IVC SCH ×2 (07:39→17:45)
[2021-02-06] MEDS ORDERED: Doxycycline 100 MG in 0.9 % Sodium Chloride Mini Bag 100 ML IVPB SCH (08:00)
[2021-02-06] MEDS: SODIUM ZIRCONIUM CYCLOSILICATE 5 GM POWD.PACK PO SCH (08:09)
[2021-02-06] MEDS: Chlorhexidine Rinse 15 ML MOUTHWASH MM SCH ×2 (08:09→20:37)
[2021-02-06] MEDS: Dexamethasone Sodium Phos/PF 10 MG/ML VIAL IVP SCH (08:09)
[2021-02-06] MEDS: Piperacillin/Tazobactam 3.375 GM in 0.9 % Sodium Chloride Mini Bag 100 ML IVPB SCH ×2 (11:41→20:37)
[2021-02-06] MEDS ORDERED: Acetaminophen IV 500 MG/50 ML BAG IVPB ONE (12:24)
[2021-02-06] MEDS ORDERED: Furosemide 40 MG/4 ML VIAL IVP ONE ×2 (12:55→23:54)
[2021-02-06] MEDS: Heparin 25,000UNIT/250ML 1/2NS 25,000 UNIT/250 ML IV.SOLN IVC SCH (13:40)
[2021-02-06] MEDS: FentaNYL (PF) 2,500 MCG/50 ML IV.SOLN IVC SCH (13:46)
[2021-02-06 15:24] LABS: Bilirubin,Urine Small (Negative); Blood,Urine Large (Negative); Clarity,Urine Turbid (Clear); Color,Urine Orange (Yellow); Glucose,Urine (UA) 150 mg/dL (Normal); Ketones,Urine Negative (Negative); Leukocyte Esterase,Urine Trace (Negative); Nitrite,Urine Negative (Negative); Protein,Urine 100 mg/dL (Neg-Trace); Specific Gravity,Urine 1.022 (1.010-1.025)
[2021-02-06] MEDS ORDERED: *HR* Rocuronium Bromide 50 MG/5 ML VIAL ONE (15:24)
[2021-02-06 15:27] LABS: RBC,Urine TNTC per hpf (0-3)
[2021-02-06 15:28] LABS: Squamous Epithelial Cell,Urine Present per hpf (None-Few); WBC,Urine Present per hpf (0-3)
[2021-02-06 15:29] LABS: Amorphous Sediment,Urine Present per hpf (None-Few); Bacteria,Urine Present per hpf (None-Few)
[2021-02-06] MEDS: Cisatracurium 200 MG in 0.9 % Sodium Chloride 180 ML IVC SCH (15:29)
[2021-02-06] MEDS ORDERED: *HR* Rocuronium Bromide 50 MG/5 ML VIAL IVP ONE (15:32)
[2021-02-06] MEDS ORDERED: levoFLOXacin 750 MG/150 ML 750 MG/150 ML BAG IVPB SCH (18:00)
[2021-02-06 18:15] LABS: ABG Base Excess 1 mEq/L (-2 to 3); ABG HCO3 30 mEq/L (21-27); ABG Oxygen Saturation 79 % (95-98); ABG PCO2 75 mmHg (35-45); ABG PH 7.21 pH Units (7.32-7.45); ABG PO2 54 mmHg (85-104); ABG TCO2 32 mEq/L (20-26); Blood Gas VT 430 cc
[2021-02-06 22:55] LABS: ABG Base Excess 1 mEq/L (-2 to 3); ABG HCO3 28 mEq/L (21-27); ABG Oxygen Saturation 96 % (95-98); ABG PCO2 51 mmHg (35-45); ABG PH 7.34 pH Units (7.32-7.45); ABG PO2 89 mmHg (85-104); ABG TCO2 29 mEq/L (20-26); Blood Gas Modality ASSIST CONTROL; Blood Gas VT 430 cc
[2021-02-06] MEDS: Calcium Gluconate 1gm/50mL 1 GM/50 ML BAG IVPB PRN (23:13)
[2021-02-06 23:39] LABS: BUN/Creatinine Ratio 40 (6-26); Blood Urea Nitrogen 49 mg/dL (8-23); Calcium 8.8 mg/dL (8.6-10.3); Carbon Dioxide 29 mEq/L (23-29); Chloride 110 mEq/L (98-107); Glucose 135 mg/dL (70-105); Osmolality,Calculated 313 (280-300); Potassium 7.1 mEq/L (3.5-5.1); Sodium 144 mEq/L (136-145); eGFR For African Americans > 60 (> 60); eGFR For Non-African Americans 58 (> 60)
[2021-02-06] MEDS ORDERED: Insulin Human Regular 10 UNIT in 0.9 % Sodium Chloride 10 ML IV ONE (23:53)
[2021-02-06] MEDS ORDERED: Calcium Gluconate 1gm/50mL 1 GM/50 ML BAG IVPB PRN (23:53)
[2021-02-06] MEDS ORDERED: *HR* Dextrose 50 % in Water (Vial) 50 ML VIAL IVP ONE (23:54)
[2021-02-07] MEDS: Insulin LISPRO 300 UNITS/3 ML VIAL SUBQ SCH ×4 (00:16→11:07)
[2021-02-07] MEDS: Artificial Tears SOLN 15 ML BOTTLE BOTH EYES SCH ×5 (00:16→11:07)
[2021-02-07] MEDS: Ipratropium 1 PUFF INHALER IH SCH ×5 (00:23→15:23)
[2021-02-07] MEDS: FentaNYL (PF) 2,500 MCG/50 ML IV.SOLN IVC SCH (02:58)
[2021-02-07] MEDS: Norepinephrine 4 MG/254 ML IV.SOLN IVC SCH (03:33)
[2021-02-07 04:34] LABS: Basophils % 0.2 %; Eosinophils % 0.2 %; Hematocrit 30.3 % (37.5-50.1); Immature Granulocytes % 1.7 % (0-4); Lymphocytes # 0.2 K/mcL (0.6-4.6); Lymphocytes % 1.9 %; Mean Corpuscular HGB Conc 29.7 g/dL (31.6-35.5); Mean Corpuscular Hemoglobin 26.2 pg (28.0-33.3); Mean Corpuscular Volume 88.1 fL (83.0-100.0); Mean Platelet Volume 11.7 fL (9.4-12.4); Monocytes # 0.3 K/mcL (0.0-1.3); Monocytes % 3.6 %; Neutrophils # 8.4 K/mcL (1.6-8.9); Nucleated Red Blood Cells 0.3 /100 WBC (0); Platelet Count 126 K/mcL (140-400); Red Blood Count 3.44 M/mcL (4.19-5.50); Red Cell Distribution Width 17.6 % (11.5-14.5); Segmented Neutrophils % 92.4 %; White Blood Count 9.1 K/mcL (4.3-11.1)
[2021-02-07 04:43] LABS: VBG Ionized Calcium 1.22 mmol/L (1.15-1.35)
[2021-02-07] MEDS ORDERED: Acetaminophen IV 1,000 MG/100 ML BAG IVPB ONE (04:47)
[2021-02-07 04:58] LABS: Anisocytosis 1+ (Not Present); Platelet Estimate Slight Decrease (Normal); Poikilocytosis 1+ (Not Present); Target Cells 1+ (Not Present)
[2021-02-07 05:01] LABS: Alanine Aminotransferase 36 Units/L (7-52); Albumin 2.4 g/dL (3.5-5.7); Albumin/Globulin Ratio 0.7 (1.1-2.2); Alkaline Phosphatase 116 Units/L (34-104); Aspartate Amino Transferase 26 Units/L (13-39); BUN/Creatinine Ratio 37 (6-26); Bilirubin,Total 3.5 mg/dL (0.3-1.0); Blood Urea Nitrogen 50 mg/dL (8-23); Carbon Dioxide 28 mEq/L (23-29); Chloride 109 mEq/L (98-107); Globulin 3.5 g/dL (2.4-3.5); Glucose 113 mg/dL (70-105); Magnesium 1.8 mg/dL (1.6-2.6); Osmolality,Calculated 312 (280-300); Potassium 6.8 mEq/L (3.5-5.1); Sodium 144 mEq/L (136-145); Total Protein 5.9 g/dL (6.4-8.9); eGFR For African Americans > 60 (> 60); eGFR For Non-African Americans 51 (> 60)
[2021-02-07] MEDS ORDERED: *HR* Dextrose 50 % in Water (Vial) 50 ML VIAL IVP ONE ×2 (05:11→12:30)
[2021-02-07] MEDS ORDERED: Insulin Human Regular 10 UNIT in 0.9 % Sodium Chloride 10 ML IV ONE ×3 (05:11→14:15)
[2021-02-07] MEDS: Piperacillin/Tazobactam 3.375 GM in 0.9 % Sodium Chloride Mini Bag 100 ML IVPB SCH ×2 (05:23→11:06)
[2021-02-07] MEDS: Calcium Gluconate 1gm/50mL 1 GM/50 ML BAG IVPB SCH ×4 (05:24→12:57)
[2021-02-07] MEDS: Pantoprazole 40 MG VIAL IVP SCH (05:24)
[2021-02-07 05:32] LABS: ABG Base Excess 0 mEq/L (-2 to 3); ABG HCO3 30 mEq/L (21-27); ABG Oxygen Saturation 92 % (95-98); ABG PCO2 73 mmHg (35-45); ABG PH 7.22 pH Units (7.32-7.45); ABG PO2 79 mmHg (85-104); ABG TCO2 32 mEq/L (20-26); Blood Gas Modality ASSIST CONTROL; Blood Gas VT 430 cc
[2021-02-07] MEDS: *HR* Heparin 5,000 UNIT/ML VIAL IVP PRN (06:36)
[2021-02-07] MEDS: SODIUM ZIRCONIUM CYCLOSILICATE 5 GM POWD.PACK PO SCH (08:18)
[2021-02-07] MEDS: Dexamethasone Sodium Phos/PF 10 MG/ML VIAL IVP SCH (08:18)
[2021-02-07] MEDS: Chlorhexidine Rinse 15 ML MOUTHWASH MM SCH (08:19)
[2021-02-07] MEDS: Dexmedetomidine HCl 400 MCG/100 ML MLS IVC SCH (10:51)
[2021-02-07] MEDS: Midazolam HCl 50 MG/100 ML IV.SOLN IVC SCH (11:11)
[2021-02-07 11:25] LABS: VBG Ionized Calcium 1.25 mmol/L (1.15-1.35)
[2021-02-07] MEDS: Cisatracurium 200 MG in 0.9 % Sodium Chloride 180 ML IVC SCH (11:25)
[2021-02-07] MEDS ORDERED: Lidocaine -MPF 1% 5 ML AMPUL INFILT ONE (11:47)
[2021-02-07 11:58] LABS: Creatine Kinase 569 Units/L (30-223); Triglycerides 273 mg/dL (< 150)
[2021-02-07 12:04] LABS: Calcium 9.2 mg/dL (8.6-10.3); Potassium 6.6 mEq/L (3.5-5.1)
[2021-02-07] MEDS: Calcium Gluconate 1gm/50mL 1 GM/50 ML BAG IVPB PRN (12:32)
[2021-02-07] MEDS ORDERED: Phenylephrine 50 MG in 0.9 % Sodium Chloride 250 ML IVC SCH (12:45)
[2021-02-07] MEDS ORDERED: *HR* Metoprolol 5 MG/5 ML VIAL IVP ONE (13:00)
[2021-02-07] MEDS ORDERED: Acetaminophen IV 1,000 MG/100 ML BAG IVPB SCH (13:00)
[2021-02-07] MEDS ORDERED: SODIUM ZIRCONIUM CYCLOSILICATE 5 GM POWD.PACK PO SCH (13:00)
[2021-02-07 15:03] VITALS: PULSE 146; O2SAT 98
[2021-02-07 15:26] VITALS: BP 93/69
[2021-02-07] MEDS: Heparin 25,000UNIT/250ML 1/2NS 25,000 UNIT/250 ML IV.SOLN IVC SCH (15:27)
[2021-02-07 16:15] VITALS: TEMP 97.1
[2021-02-08] MEDS ORDERED: levoFLOXacin 750 MG/150 ML 750 MG/150 ML BAG IVPB SCH (12:00)
[2021-02-09] MEDS ORDERED: SODIUM ZIRCONIUM CYCLOSILICATE 5 GM POWD.PACK PO SCH (09:00)
== END 2021-02-07 18:10 | disposition expired | DRG 870 ==
LOC: EMEROOARM 19:15 → ICNU 19:15
PROVIDERS: ADMIT Internal Medicine; ATTEND Internal Medicine